=== PATIENT | female | born 1960 | race Hispanic/Latino ===

== ENCOUNTER 2023-05-24 12:52 | Emergency (ER) | payer MEDICAID, SELFPAY ==
--- NOTE | ~2023-05-24 | CT_ITS ---
EXAMINATION: CT abdomen pelvis w con DATE: 05/24/2023 16:09 INDICATION: Abdominal pain. Nausea. Abnormal liver function tests. TECHNIQUE: Computed tomography (CT) of the abdomen and pelvis was performed with 100 mL Omnipaque 350 intravenous contrast. Automated exposure control and iterative reconstruction technique were employe d. The dose-length product was 670.57 mGy-cm. COMPARISON: None. FINDINGS: The visualized portions of the lung bases demonstrate mild atelectasis. There is a 3 mm nod ule in right lower lobe, likely benign. There is mild scarring in paraspinal right lower lobe. No ple ural effusion. The heart size is normal. There are coronary artery calcifications. No pericardial eff usion. The liver and spleen are normal. The gallbladder is absent. The common duct is dilated to 11 m m. There are 3 mm and 3 mm cysts in the pancreas. The adrenal glands are normal. There is a 9 mm cyst in right kidney. Left kidney is normal. There are no dilated loops is normal. Aortic atherosclerosis is noted. There are no pathologically enlarged lymph nodes. There is no free intraperitoneal fluid. There is moderate thoracic spondylosis and severe lumbar spondylosis. Lumbar dextroscoliosis is noted . IMPRESSION: 1. Mildly dilated common duct status post cholecystectomy. Reviewed, dictated and finalized at location E. 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
[2023-05-24 12:54] VITALS: BP 136/87; PULSE 107; RESP 16; TEMP 37.2; O2SAT 98
--- NOTE | 2023-05-24 15:18 | ED.ABDPAIN ---
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 Reports nausea, vomiting, dysuria, urinary urgency, and epigastric pain. Denies fever, cough, congestion, or diarrhea. Related Data Allergies Allergy/AdvReac Type Severity Reaction Status Date / Time No Known Allergies Allergy Verified 05/24/23 13:09 Review of Systems Review of Systems: CONSTITUTIONAL: Denies fever GASTROINTESTINAL: Reports abdominal pain, nausea, vomiting. Denies diarrhea. GENITOURINARY: Reports dysuria. Denies hematuria. All systems reviewed & are unremarkable except as noted in HPI and below PMFSH Past Medical History Medical History (Updated 05/24/23 @ 18:02 by Manuela Hardy PA-C) History of diabetes mellitus Social History Social History (Updated 05/24/23 @ 15:21 by Manuela Hardy PA-C) Substance use: never Exam Narrative: GENERAL: Well-appearing, well-nourished, and in no acute distress. HEAD: Normocephalic, atraumatic. EYES: EOMI. CHEST: Clear to auscultation. No respiratory distress. No wheezes rales or rhonchi HEART: Regular rate and rhythm. No murmur heard. Normal peripheral pulses. ABDOMEN: Soft, nontender, nondistended, normal active bowel sounds. EXTREMITIES: Normal range of motion. No edema. SKIN: Warm, dry, no rash. NEURO: No focal deficits. Alert and oriented x3. PSYCH: Normal mood and affect Course Course Emergency Course: Patient and family updated on her workup and agree with plan of care Vital Signs Vital signs: Vital Signs Temperature 98.9 F 05/24/23 12:54 Pulse Rate 107 H 05/24/23 12:54 Respiratory Rate 16 05/24/23 12:54 Blood Pressure 136/87 05/24/23 12:54 Pulse Oximetry 98 05/24/23 12:54 Oxygen Delivery Room Air 05/24/23 12:54 Temperature 98.9 F 05/24/23 12:54 Pulse Rate 107 H 05/24/23 12:54 Respiratory Rate 16 05/24/23 12:54 Blood Pressure 136/87 05/24/23 12:54 Pulse Oximetry 98 05/24/23 12:54 Oxygen Delivery Room Air 05/24/23 12:54 MDM - Abdominal Pain MDM Narrative Medical decision making narrative: Patient presents to the emergency department for nausea, vomiting and urinary symptoms. She is afebrile and nontoxic appearing. Her vitals are stable. CBC without leukocytosis. Metabolic panel with evidence of dehydration and hypokalemia. Patient hydrated with IV fluids in the ED and potassium replaced. Magnesium is normal. Liver enzymes are mildly elevated. I don't have any comparison labs to review. UA with evidence of infection. CT abdomen/pelvis with mildly dilated common bile duct s/p cholecystectomy. Patient was updated on her workup. Reports relief with IV fluids and Zofran. Able to tolerate PO challenge. Given first dose of antibiotics IV. She is to follow up with her PCP. She was given warnings to return to the ER Differential Diagnosis Differential diagnosis: Likely calculus of kidney, gastroenteritis, pancreatitis and other (UTI) Lab Data Attestation: I reviewed the patient's lab results. 05/24/23 15:11 05/24/23 15:11 Labs: Lab Results 05/24/23 Range/Units 15:11 WBC 6.4 (4.5-10.0) K/mm3 RBC 5.38 (4.2-5.4) M/mm3 Hgb 14.7 (12.0-15.0) g/dL Hct 45.5 (37.0-47.0) % MCV 84.6 (80-100) fl MCH 27.3 (26-34) pg MCHC 32.3 (32-36) g/dl RDW 12.8 (11.5-14.5) % Plt Count 241 (150-375) k/mm3 MPV 10.1 (7.4-10.4) fl Immature Gran % (Auto) 0.3 (0-0.5) % Neut % (Auto) 65.3 (45.5-73.1) % Lymph % (Auto) 28.1 (18.3-44.2) % [place] % (Auto) 5.3 (2.6-8.5) % Eos % (Auto) 0.2 (0-4.4) % Baso % (Auto) 0.8 (0.2-1.2) % Lymph # (Auto) 1.79 (0.9-3
[2023-05-24 15:30] LABS: Basophils Absolute Auto 0.1 K/mm3 (0.0-0.1); Basophils Percent Auto 0.8 % (0.2-1.2); Eosinophils Percent Auto 0.2 % (0-4.4); Hematocrit 45.5 % (37.0-47.0); Hemoglobin 14.7 g/dL (12.0-15.0); Immature Granulocyte Absolute 0.02 K/mm3 (0.00-0.031); Immature Granulocyte Percent A 0.3 % (0-0.5); Lymphocytes Absolute Auto 1.79 K/mm3 (0.9-3.2); Lymphocytes Percent Auto 28.1 % (18.3-44.2); Mean Corpuscular HGB Conc 32.3 g/dl (32-36); Mean Corpuscular Hemoglobin 27.3 pg (26-34); Mean Corpuscular Volume 84.6 fl (80-100); Mean Platelet Volume 10.1 fl (7.4-10.4); Monocytes Absolute Auto 0.3 K/mm3 (0.1-0.6); Monocytes Percent Auto 5.3 % (2.6-8.5); Neutrophils Absolute Auto 4.2 K/mm3 (1.3-6.7); Neutrophils Percent Auto 65.3 % (45.5-73.1); Platelet Count Result 241 k/mm3 (150-375); Red Blood Count 5.38 M/mm3 (4.2-5.4); Red Cell Distribution Width 12.8 % (11.5-14.5); White Blood Count 6.4 K/mm3 (4.5-10.0)
[2023-05-24 15:33] LABS: Alanine Aminotransferase 93 U/L (6-35); Albumin Level 4.7 g/dL (3.5-5.1); Alkaline Phosphatase 85 U/L (38-126); Anion Gap 13 mmol/L (8-16); Aspartate Amino Transferase 101 U/L (14-36); Bilirubin,Total 1.7 mg/dL (0.2-1.3); Blood Urea Nitrogen 14 mg/dL (7-17); Carbon Dioxide 26 mmol/L (22-30); Chloride 97 mmol/L (98-107); Estimated CRCL calculation 37 ml/min; Estimated Glomerular Filt Rate 45; Glucose 134 mg/dL (65-110); Lipase 171 U/L (23-300); Sodium 136 mmol/L (137-145)
[2023-05-24] MEDS: SODIUM CHLORIDE 0.9% IV 500 ML 999 ML IV CONT (15:33)
[2023-05-24] MEDS: ONDANSETRON INJ 4 MG/2 ML VIAL IV PUSH (15:34)
[2023-05-24] MEDS: FAMOTIDINE 20 MG/2 ML VIAL IV PUSH (15:34)
[2023-05-24 15:38] LABS: Appearance Urine Cloudy (Clear); Bacteria Urine None Seen /hpf; Bilirubin Urine Negative (Negative); Blood Urine Negative (Negative); Color Urine Dark Yellow (Yellow); Glucose Urine UA Negative (Negative); Hyaline Casts Urine Present /lpf; Ketones Urine 3+ mg/dL (Negative); Leukocyte Esterase Ur Trace LEU/UL (Negative); Nitrate Urine Negative (Negative); Non Pathogenic Casts >20; Protein Urine 1+ mg/dL (Negative); RBC Urine 0-2 /hpf (0-2); Specific Grav Ur 1.026 (1.001-1.035); Squamous Epithelial Cell Urine Moderate /hpf (Few); pH Urine 5.5 (5.0-9.0)
[2023-05-24 15:39] LABS: Add Urine Microscopic? YES
[2023-05-24 16:56] LABS: Influenza A QL RT-PCR Negative (Negative); Influenza B QL RT-PCR Negative (Negative); Magnesium 1.8 mg/dL (1.6-2.3); SARS-CoV-2 RNA PCR Negative (Negative)
[2023-05-24] MEDS: SODIUM CHLORIDE 0.9% IV 1,000 ML 999 ML IV CONT (17:19)
[2023-05-24] MEDS: POTASSIUM CHLORIDE 20 MEQ ER TABLET 40 MEQ PO (18:10)
== END 2023-05-24 18:47 | disposition home or self-care (01) ==
PROVIDERS: Emergency Provider Physician Assistant
DX: N39.0 Urinary tract infection, site not specified (principal); E87.6 Hypokalemia; E86.0 Dehydration; Z20.822 Contact with and (suspected) exposure to COVID-19
CPT/HCPCS: 36415; 74177; 80053; 81001; 83690; 83735; 85025; 87086; 87636; 96365; 96375; 99284; A9270; J0696; J2405; J7030; J7040; Q9967

== ENCOUNTER 2023-06-27 12:36 | Emergency (ER) | payer OTHER, SELFPAY ==
--- NOTE | ~2023-06-27 | CT_ITS ---
EXAMINATION: CT abdomen pelvis w con DATE: 06/27/2023 15:47 INDICATION: Abdominal pain TECHNIQUE: Computed tomography (CT) of the abdomen and pelvis was performed with 100 cc Omnipaque 350 intravenous contrast. The dose-length product was 383.02 mGy-cm. Automated exposure control and iter ative reconstruction technique were employed. COMPARISON: CT dated 05/24/2023 FINDINGS: Lung bases unremarkable. Heart size normal. No significant pleural or pericardial effusion. Fatty infiltration of the liver. Gallbladder is not identified, likely surgically absent. The spleen , pancreas, adrenal glands and left kidney are unremarkable. There is a right renal cyst. Bowel gas p attern nonobstructive. No abnormal pelvic masses or fluid collections. No significant vascular abnorm ality. No lymphadenopathy. No free air or free fluid. No acute osseous abnormality. IMPRESSION: 1. No acute abdominal abnormality. Reviewed, dictated and finalized at location L.
[2023-06-27 14:06] LABS: Basophils Absolute Auto 0.1 K/mm3 (0.0-0.1); Eosinophils Percent Auto 0.3 % (0-4.4); Hematocrit 44.5 % (37.0-47.0); Hemoglobin 14.6 g/dL (12.0-15.0); Immature Granulocyte Absolute 0.02 K/mm3 (0.00-0.031); Immature Granulocyte Percent A 0.3 % (0-0.5); Lymphocytes Absolute Auto 1.82 K/mm3 (0.9-3.2); Lymphocytes Percent Auto 30.5 % (18.3-44.2); Mean Corpuscular HGB Conc 32.8 g/dl (32-36); Mean Corpuscular Hemoglobin 27.5 pg (26-34); Mean Platelet Volume 10.3 fl (7.4-10.4); Monocytes Absolute Auto 0.3 K/mm3 (0.1-0.6); Monocytes Percent Auto 5.2 % (2.6-8.5); Neutrophils Absolute Auto 3.7 K/mm3 (1.3-6.7); Neutrophils Percent Auto 62.7 % (45.5-73.1); Platelet Count Result 247 k/mm3 (150-375); Red Cell Distribution Width 12.5 % (11.5-14.5)
[2023-06-27 14:15] LABS: Alanine Aminotransferase 83 U/L (6-35); Albumin Level 4.6 g/dL (3.5-5.1); Alkaline Phosphatase 102 U/L (38-126); Anion Gap 10 mmol/L (4-12); Aspartate Amino Transferase 73 U/L (14-36); Bilirubin,Total 1.6 mg/dL (0.2-1.3); Blood Urea Nitrogen 19 mg/dL (7-17); Calcium 9.8 mg/dL (8.4-10.2); Carbon Dioxide 28 mmol/L (22-30); Chloride 97 mmol/L (98-107); Estimated Glomerular Filt Rate > 60; Glucose 133 mg/dL (65-110); Lipase 219 U/L (23-300); Potassium 3.1 mmol/L (3.4-5.0); Sodium 135 mmol/L (137-145)
[2023-06-27 14:42] LABS: Add Urine Microscopic? NO; Color Urine Yellow (Yellow)
[2023-06-27 14:43] LABS: Appearance Urine Clear (Clear); Blood Urine Negative (Negative); Glucose Urine UA 3+ mg/dL (Negative); Ketones Urine Negative (Negative); Protein Urine Negative (Negative); Specific Grav Ur 1.025 (1.001-1.035); pH Urine 5.5 (5.0-9.0)
[2023-06-27 14:44] LABS: Bilirubin Urine Negative (Negative); Nitrate Urine Negative (Negative)
[2023-06-27 14:45] LABS: Leukocyte Esterase Ur Negative LEU/UL (Negative); Urobilinogen Urine 0.2 mg/dL (<2.0)
--- NOTE | 2023-06-27 15:09 | ED.GENADULT ---
HPI - General Adult General Chief complaint: Headache Stated complaint: headache Time Seen by Provider: 06/27/23 14:07 History of Present Illness HPI narrative: 62-year-old female presents to the emergency department for evaluation of headache nausea vomiting and abdominal pain. Patient reports yesterday she was having nausea vomiting and during emesis she would have headache. Patient states today she began developing some epigastric abdominal pain. translation services were utilized Related Data Allergies Allergy/AdvReac Type Severity Reaction Status Date / Time No Known Allergies Allergy Verified 05/24/23 13:09 Review of Systems Review of Systems: All systems reviewed & are unremarkable except as noted in HPI and below PMFSH Past Medical History Medical History (Updated 06/27/23 @ 17:33 by Kyler Garcia MD) History of diabetes mellitus Social History Social History (Updated 05/24/23 @ 15:21 by Manuela Hardy PA-C) Substance use: never Exam Narrative: APPEARANCE: Well appearing, no pain, no distress, well-nourished. HEAD: normocephalic, atraumatic. EYES: PERRLA/EOMI, conjunctivae clear. NOSE: Normal no drainage EARS:TMS clear with good light reflex. THROAT: Pharynx clear, no exudate. NECK: Supple. No adenopathy, no masses. RESPIRATORY: Airway patent, respirations nonlabored. Clear to auscultation bilaterally, no rales, rhonchi, wheezing. CARDIOVASCULAR: Regular rate and rhythm without murmurs rubs or gallops. ABDOMINAL: Soft, nontender, nondistended, normal bowel sounds MUSCULOSKELETAL: Moves all extremities. Strength/ROM intact, No edema, No calf tenderness. NEURO: Alert. Cranial nerves II through XII intact. grossly intact SKIN: Warm, dry. Normal Color Course Course Emergency Course: on re-examination patient felt improved and had no headache and no abdominal pain Vital Signs Vital signs: Vital Signs Pulse Rate 81 06/27/23 15:52 Respiratory Rate 16 06/27/23 15:52 Blood Pressure 105/72 06/27/23 15:52 Pulse Oximetry 100 06/27/23 15:52 Temperature 98.2 F 06/27/23 18:03 Pulse Rate 73 06/27/23 18:03 Respiratory Rate 16 06/27/23 18:03 Blood Pressure 126/76 06/27/23 18:03 Pulse Oximetry 100 06/27/23 18:03 Medical Decision Making MDM Narrative Medical decision making narrative: 62-year-old female present to the emergency department for evaluation of nausea vomiting and upper abdominal pain. Patient was treated with GI cocktail and Toradol. Patient did feel improved with treatment. Patient is afebrile with no leukocytosis and a stable hemoglobin, patient have no significant abnormalities on her CMP. Patient had mild elevation of T bili AST ALT with normal alk-phos and normal lipase. Patient had no right upper quadrant tenderness to palpation on reexamination patient had no tenderness to palpation. CT scan showed no acute abdominal pelvic abnormality. Patient family were updated the results of the workup with her comfortable with plan for discharge and close follow-up. Patient will be discharged home with instructions for clear liquid diet, Zofran and omeprazole. Differential Diagnosis Differential Diagnosis: gastritis, enteritis, colitis Vital Signs Vital Signs: Vital Signs Pulse Rate 81 06/27/23 15:52 Respiratory Rate 16 06/27/23 15:52 Blood Pressure 105/72 06/27/23 15:52 Pulse Oximetry 100 06/27/23 15:52 Temperature 98.2 F 06/27/23 18:03 Pulse Rate 73 06/27/23 18:03 Respiratory Rate 16 06/27/23 18:03 Blood Pressure 126/76 06/27/23 18:03 Pulse Oximetry 100 06/27/23 18:03 Lab Data Lab results reviewed: Yes I reviewed the patient's lab results. 06/27/23 13:54 06/27/23 13:54 Labs: Lab Results 06/27/23 06/27/23 Range/Units 13:54 14:25 WBC 6.0 (4.5-10.0) K/mm3 RBC 5.30 (4.2-5.4) M/mm3 Hgb 14.6 (12.0-15.0) g/dL Hct 44.5 (37.0-47.0) %
[2023-06-27] MEDS: SODIUM CHLORIDE 0.9% IV 1,000 ML 999 ML IV CONT (15:49)
[2023-06-27] MEDS: BELLADONNA ALK/PHENOB ELIX 10 ML, MAG HYDROX/ALUMINUM HYD/SIMETH 30 ML, LIDOCAINE HCL 2... PO (15:49)
[2023-06-27 15:52] VITALS: BP 105/72; PULSE 81; RESP 16; O2SAT 100
[2023-06-27 16:46] VITALS: BP 93/61; O2SAT 100
[2023-06-27] MEDS: KETOROLAC 15 MG/ML VIAL (*BKC) IV PUSH (17:01)
[2023-06-27 18:03] VITALS: BP 126/76; PULSE 73; RESP 16; TEMP 36.8; O2SAT 100
== END 2023-06-27 18:00 | disposition home or self-care (01) ==
PROVIDERS: Emergency Provider Emergency Medicine; PCP Internal Medicine Infectious Disease
DX: R11.2 Nausea with vomiting, unspecified (principal); R10.9 Unspecified abdominal pain; E11.9 Type 2 diabetes mellitus without complications
CPT/HCPCS: 36415; 74177; 80053; 81003; 83690; 85025; 96361; 96374; 99284; A9270; J1885; J7030; Q9967

== ENCOUNTER 2023-07-03 13:50 | Emergency (ER) | payer OTHER, SELFPAY ==
[2023-07-03] VITALS (17 sets, daily range): BP systolic 103–113; BP diastolic 70–82; PULSE 87–100; RESP 11–21; TEMP 36.4; O2SAT 96–100
--- NOTE | ~2023-07-03 | CT_ITS ---
EXAMINATION: CT abdomen pelvis w con DATE: 07/03/2023 18:21 INDICATION: lower abd pain, BRBPR, hemorrhoids, constipation TECHNIQUE: Computed tomography (CT) of the abdomen and pelvis was performed with 100 mL Omnipaque-350 intravenous contrast. Automated exposure control and iterative reconstruction technique were employe d. The dose-length product was 617.03 mGy-cm. COMPARISON: 06/27/2023. FINDINGS: Lower thorax: Unremarkable Liver: Diffuse fatty infiltration. Biliary/Gallbladder: Gallbladder is absent. No bile duct dilation. Pancreas: No mass or duct dilation. Spleen: Normal. Adrenals:No mass. Kidneys: No suspicious mass, obstructing stone, or hydronephrosis. Simple right lower pole cyst. GI tract: Mild distal esophageal and gastric wall edema. Mild dilation of the rectum by formed stool, without significant surrounding inflammatory change. Suggestion of rectal hyperemia and wall edema. No small or large bowel dilation. Normal appendix. Mesentery/Peritoneum: No ascites, mass, or free air. Retroperitoneum: No mass. Pelvis: Normal urinary bladder. Absent uterus. Ovaries not confidently identified. Soft Tissues: Soft tissues and body wall unremarkable. Bones: No acute osseous finding. IMPRESSION: Mild esophagitis/gastritis. Hepatic steatosis. Possible proctitis with mild fecal impaction. Reviewed, dictated and finalized at location K.
--- NOTE | 2023-07-03 14:15 | ED.GIBLEED ---
HPI - GI Bleed General Chief complaint: GI Bleed <ROLO Leroy Last Filed: 07/03/23 14:35> Stated complaint: bloody bm, hemorrhoids <ROLO Leroy Last Filed: 07/03/23 14:35> Time Seen by Provider: 07/03/23 14:15 <ROLO Leroy Last Filed: 07/03/23 14:35> Focused HPI: Patient is a 62-year-old female who presents the ED with report of rectal bleeding. Patient is primarily [place]ani-speaking. 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 Patient reports having issues with hemorrhoids and bright red rectal bleeding since Monday. She reports having intense pain with attempting to have a bowel movement, though reports constipation for the last 4-5 days. Reports lower abdominal discomfort, denies nausea, vomiting, fevers, dizziness, lightheadedness. Patient is on any blood thinners. GENERAL: Well-appearing, well-nourished, and in no acute distress. HEAD: Normocephalic, atraumatic. CHEST: Clear to auscultation. ?No respiratory distress. HEART: Tachycardic with regular rhythm.? ABD: Mild tenderness in suprapubic and RLQ. NEURO: ?Alert and oriented x3. Patient screened in triage and initial orders placed.? ?Additional care and disposition to be based upon?diagnostic testing and treatment. <ROLO Leroy Last Filed: 07/03/23 14:35> Source: patient <ROLO Leroy Last Filed: 07/03/23 14:35> Mode of arrival: ambulatory <ROLO Leroy Last Filed: 07/03/23 14:35> Limitations: no limitations <ROLO Leroy Last Filed: 07/03/23 14:35> Related Data Allergies/Adverse reactions: Allergies Allergy/AdvReac Type Severity Reaction Status Date / Time No Known Allergies Allergy Verified 07/03/23 14:19 <ROLO Leroy Last Filed: 07/03/23 14:35> Review of Systems Review of Systems: All systems as dictated in HPI <Lenin Hill PA-C - Last Filed: 07/04/23 01:24> [facility] Past Medical History Medical History: Medical History (Updated 07/04/23 @ 00:01 by Dick Kumar) History of diabetes mellitus <Smita Peralta PA-C - Last Filed: 07/03/23 14:35> Social History Social History: Social History (Updated 05/24/23 @ 15:21 by Manuela Hardy PA-C) Substance use: never <Smita Peralta PA-C - Last Filed: 07/03/23 14:35> Exam Narrative: GENERAL: Well-appearing, well-nourished, and in no acute distress. HEAD: Normocephalic, atraumatic. EYES: PERRLA and EOMI. ENT: Nares clear, no rhinorrhea or epistaxis. Mucous membranes moist. Oropharynx without tonsillar hypertrophy exudate or other lesions. NECK: Supple. No adenopathy or masses. CHEST: No respiratory distress. Clear to auscultation. No wheezes rales or rhonchi HEART: Regular rate and rhythm. No murmur heard. Normal peripheral pulses. ABDOMEN: Soft, nontender, nondistended, normal active bowel sounds. MSK: Normal range of motion. No edema. SKIN: Warm, dry, no rash. NEURO: Alert and oriented x3. No focal deficits. PSYCH: Normal mood and affect. : <Lenin Hill PA-C - Last Filed: 07/04/23 01:24> Course Course Emergency Course: Reason for by nursing staff that she was able to expel fecal material soapsuds enema. Patient is feeling much improved on re-evaluation. <Lenin Hill PA-C - Last Filed: 07/04/23 01:24> Vital Signs Vital signs: Vital Signs Temperature 97.6 F 07/03/23 14:12 Pulse Rate 100 07/03/23 14:12 Respiratory Rate 17 07/03/23 14:12 Blood Pressure 111/82 07/03/23 14:12 Pulse Oximetry 100 07/03/23 14:12 Oxygen Delivery Room Air 07/03/23 14:12 Temperature 97.6 F 07/03/23 19:49 Pulse Rate 96 07/03/23 21:00 Respiratory Rate 20 07/03/23 21:00 Blood Pressure 103/70 07/03/23 20:01 Pulse Oximetry 97 07/03/23 21:00 Oxygen Delivery Room Air 07/03/23 14:12 Katrin Benito
[2023-07-03 17:39] LABS: Basophils Absolute Auto 0.1 K/mm3 (0.0-0.1); Eosinophils Absolute Auto 0.1 K/mm3 (0-0.3); Eosinophils Percent Auto 0.5 % (0-4.4); Hemoglobin 14.6 g/dL (12.0-15.0); Immature Granulocyte Absolute 0.03 K/mm3 (0.00-0.031); Immature Granulocyte Percent A 0.3 % (0-0.5); Lymphocytes Absolute Auto 2.48 K/mm3 (0.9-3.2); Lymphocytes Percent Auto 26.6 % (18.3-44.2); Mean Corpuscular HGB Conc 32.4 g/dl (32-36); Mean Corpuscular Hemoglobin 27.3 pg (26-34); Mean Corpuscular Volume 84.3 fl (80-100); Mean Platelet Volume 9.9 fl (7.4-10.4); Monocytes Absolute Auto 0.6 K/mm3 (0.1-0.6); Monocytes Percent Auto 6.3 % (2.6-8.5); Neutrophils Absolute Auto 6.1 K/mm3 (1.3-6.7); Neutrophils Percent Auto 65.3 % (45.5-73.1); Platelet Count Result 284 k/mm3 (150-375); Red Blood Count 5.34 M/mm3 (4.2-5.4); Red Cell Distribution Width 12.6 % (11.5-14.5); White Blood Count 9.3 K/mm3 (4.5-10.0)
[2023-07-03 17:49] LABS: Alanine Aminotransferase 73 U/L (6-35); Albumin Level 4.4 g/dL (3.5-5.1); Alkaline Phosphatase 109 U/L (38-126); Anion Gap 11 mmol/L (4-12); Aspartate Amino Transferase 82 U/L (14-36); Bilirubin,Total 1.3 mg/dL (0.2-1.3); Blood Urea Nitrogen 16 mg/dL (7-17); Calcium 9.8 mg/dL (8.4-10.2); Carbon Dioxide 27 mmol/L (22-30); Chloride 96 mmol/L (98-107); Estimated Glomerular Filt Rate > 60; Glucose 151 mg/dL (65-110); Lipase 212 U/L (23-300); Potassium 3.2 mmol/L (3.4-5.0); Sodium 134 mmol/L (137-145)
[2023-07-03 17:54] LABS: Partial Thromboplastin Time 26.8 Seconds (22.3-36.8)
[2023-07-03 19:30] LABS: Appearance Urine Clear (Clear); Bilirubin Urine Negative (Negative); Blood Urine Negative (Negative); Color Urine Yellow (Yellow); Glucose Urine UA 3+ mg/dL (Negative); Ketones Urine Trace mg/dL (Negative); Leukocyte Esterase Ur Negative LEU/UL (Negative); Nitrate Urine Negative (Negative); Protein Urine Negative (Negative); Urobilinogen Urine 0.2 mg/dL (<2.0); pH Urine 7.5 (5.0-9.0)
[2023-07-03 19:39] LABS: Add Urine Microscopic? NO; Specific Grav Ur 1.065 (1.001-1.035)
== END 2023-07-03 21:17 | disposition home or self-care (01) ==
PROVIDERS: Physician Assistant; Emergency Provider Physician Assistant; PCP Internal Medicine Infectious Disease
DX: K56.41 Fecal impaction (principal); K64.8 Other hemorrhoids; E11.9 Type 2 diabetes mellitus without complications; K20.90 Esophagitis, unspecified without bleeding; K29.70 Gastritis, unspecified, without bleeding; K76.0 Fatty (change of) liver, not elsewhere classified; R93.3 Abnormal findings on diagnostic imaging of other parts of digestive tract
CPT/HCPCS: 36415; 74177; 80053; 81003; 83690; 85025; 85610; 85730; 86850; 86900; 86901; 99284; Q9967

== ENCOUNTER 2023-12-22 07:59 | Emergency (ER) | payer OTHER, SELFPAY ==
--- NOTE | ~2023-12-22 | XR_ITS ---
EXAMINATION: XR ribs RT 2V w CXR 2V DATE: 12/22/2023 11:32 INDICATION: Right-sided rib pain. TECHNIQUE: PA and lateral views of the chest and 3 views of the right ribs were obtained. COMPARISON: None FINDINGS: No rib fractures identified. Mild linear discoid atelectasis/scarring at the lateral left lower lung zone. No other airspace opacities, pulmonary edema, pleural effusion or pneumothorax. Cardiomediastin al silhouette is normal. Mild 3 compartment scoliosis of the thoracic and lumbar spine with mild lowe r thoracic levocurvature and dextrocurvature of the more cephalad thoracic and caudal lumbar spine wi th moderate to severe spondylosis. IMPRESSION: 1. Mild discoid atelectasis at the left lower lung zone. No rib fracture or other acute cardiopulmona ry disease. Reviewed, dictated and finalized at location B. IMPRESSION: 1. Mild discoid atelectasis at the left lower lung zone. No rib fracture or oth er acute cardiopulmonary disease.
--- NOTE | ~2023-12-22 | CT_ITS ---
EXAMINATION: CT abdomen pelvis w con DATE: 12/22/2023 13:50 INDICATION: Right upper quadrant abdominal pain. TECHNIQUE: Computed tomography (CT) of the abdomen and pelvis was performed with 100 mL Omnipaque 350 intravenous contrast. Automated exposure control and iterative reconstruction technique were employe d. The dose-length product was 801.86 mGy-cm. COMPARISON: CT abdomen and pelvis 07/03/2023 FINDINGS: The visualized portions of lung bases demonstrate mild atelectasis. No pleural effusion. Th e heart size is normal. No pericardial effusion. The liver, spleen, pancreas, and adrenal glands are normal. The gallbladder is absent. There is an 11 mm cyst in right kidney. Left kidney is normal. The re are no dilated loops of bowel. The appendix is normal. There are no pathologically enlarged lymph nodes. There is no free intraperitoneal fluid. There is severe lumbar spondylosis. IMPRESSION: 1. No etiology for the patient's symptoms. Reviewed, dictated and finalized at location A.
[2023-12-22 08:38] VITALS: BP 141/76; PULSE 71; RESP 19; TEMP 36.7; O2SAT 99
[2023-12-22 10:05] VITALS: BP 133/83; PULSE 77; RESP 17; O2SAT 98
--- NOTE | 2023-12-22 11:23 | ED.GENADULT ---
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 Ongoing over the last week. Reports she thinks she cracked a rib. No recent injuries. The pain is worse with movement and relieved with rest. Denies fevers, shortness of breath, abdominal pain, vomiting. Related Data Allergies Allergy/AdvReac Type Severity Reaction Status Date / Time No Known Allergies Allergy Verified 07/03/23 14:19 Review of Systems Review of Systems: CONSTITUTIONAL: Denies fever GASTROINTESTINAL: Denies abdominal pain, nausea, vomiting All systems reviewed & are unremarkable except as noted in HPI and below PMFSH Past Medical History Medical History (Updated 12/22/23 @ 15:44 by Manuela Hardy PA-C) History of diabetes mellitus Social History Social History (Updated 05/24/23 @ 15:21 by Manuela Hardy PA-C) Substance use: never Exam Narrative: GENERAL: Well-appearing, well-nourished, and in no acute distress. HEAD: Normocephalic, atraumatic. EYES: EOMI. CHEST: Clear to auscultation. No respiratory distress. No wheezes rales or rhonchi HEART: Regular rate and rhythm. No murmur heard. Normal peripheral pulses. ABDOMEN: Soft, nondistended, normal active bowel sounds. Mild tenderness to palpation of the right lower ribs/right upper quadrant EXTREMITIES: Normal range of motion. No edema. SKIN: Warm, dry, no rash. NEURO: No focal deficits. Alert and oriented x3. PSYCH: Normal mood and affect Course Course Emergency Course: patient and family updated on workup and agree with plan of care Vital Signs Vital signs: Vital Signs Temperature 98.1 F 12/22/23 08:38 Pulse Rate 71 12/22/23 08:38 Respiratory Rate 19 12/22/23 08:38 Blood Pressure 141/76 H 12/22/23 08:38 Pulse Oximetry 99 12/22/23 08:38 Oxygen Delivery Room Air 12/22/23 08:38 Temperature 98.1 F 12/22/23 08:38 Pulse Rate 77 12/22/23 10:05 Respiratory Rate 17 12/22/23 12:44 Blood Pressure 133/83 12/22/23 10:05 Pulse Oximetry 98 12/22/23 10:05 Oxygen Delivery Room Air 12/22/23 08:38 Medical Decision Making MDM Narrative Medical decision making narrative: patient presents to the emergency department for right-sided rib pain. Ongoing over the last week. No known injuries. She is afebrile and nontoxic appearing. Her vitals are stable. Cbc without leukocytosis. Metabolic panel with elevation in AST and ALT, this does appear chronic. Lipase is normal. CT abdomen and pelvis without acute findings. Right rib/ chest x-ray also without acute findings. Patient was updated on her workup and agrees with plan of care. Instructed to have close follow-up with primary provider for further evaluation. She was given warnings to return to the ER Differential Diagnosis Differential Diagnosis: muscle strain, rib fracture, rib contusion, pneumonia, hepatitis, pancreatitis Vital Signs Vital Signs: Vital Signs Temperature 98.1 F 12/22/23 08:38 Pulse Rate 71 12/22/23 08:38 Respiratory Rate 19 12/22/23 08:38 Blood Pressure 141/76 H 12/22/23 08:38 Pulse Oximetry 99 12/22/23 08:38 Oxygen Delivery Room Air 12/22/23 08:38 Temperature 98.1 F 12/22/23 08:38 Pulse Rate 77 12/22/23 10:05 Respiratory Rate 17 12/22/23 12:44 Blood Pressure 133/83 12/22/23 10:05 Pulse Oximetry 98 12/22/23 10:05 Oxygen Delivery Room Air 12/22/23 08:38 Lab Data Lab results reviewed: Yes I reviewed the patient's lab results. 12/22/23 11:47 12/22/23 11:47 Labs: Lab Results 12/22/23 Range/Units 11:47 WBC 5.4 (4.5-10.0) K/mm3 RBC 5.44 H (4.2-5.4) M/mm3
[2023-12-22 11:52] LABS: Basophils Absolute Auto 0.1 K/mm3 (0.0-0.1); Basophils Percent Auto 1.5 % (0.2-1.2); Eosinophils Absolute Auto 0.1 K/mm3 (0-0.3); Eosinophils Percent Auto 1.9 % (0-4.4); Hematocrit 44.9 % (37.0-47.0); Hemoglobin 14.9 g/dL (12.0-15.0); Immature Granulocyte Absolute 0.02 K/mm3 (0.00-0.031); Immature Granulocyte Percent A 0.4 % (0-0.5); Lymphocytes Absolute Auto 1.76 K/mm3 (0.9-3.2); Lymphocytes Percent Auto 32.7 % (18.3-44.2); Mean Corpuscular HGB Conc 33.2 g/dl (32-36); Mean Corpuscular Hemoglobin 27.4 pg (26-34); Mean Corpuscular Volume 82.5 fl (80-100); Mean Platelet Volume 9.6 fl (7.4-10.4); Monocytes Absolute Auto 0.3 K/mm3 (0.1-0.6); Monocytes Percent Auto 4.8 % (2.6-8.5); Neutrophils Absolute Auto 3.2 K/mm3 (1.3-6.7); Neutrophils Percent Auto 58.7 % (45.5-73.1); Platelet Count Result 228 k/mm3 (150-375); Red Blood Count 5.44 M/mm3 (4.2-5.4); Red Cell Distribution Width 12.5 % (11.5-14.5); White Blood Count 5.4 K/mm3 (4.5-10.0)
[2023-12-22 12:11] LABS: Alanine Aminotransferase 114 U/L (6-35); Albumin Level 4.7 g/dL (3.5-5.1); Alkaline Phosphatase 108 U/L (38-126); Anion Gap 12 mmol/L (4-12); Aspartate Amino Transferase 117 U/L (14-36); Bilirubin,Total 1.7 mg/dL (0.2-1.3); Blood Urea Nitrogen 15 mg/dL (7-17); Calcium 10.2 mg/dL (8.4-10.2); Carbon Dioxide 27 mmol/L (22-30); Chloride 97 mmol/L (98-107); Estimated Glomerular Filt Rate > 60; Glucose 163 mg/dL (65-110); Lipase 260 U/L (23-300); Potassium 3.4 mmol/L (3.4-5.0); Sodium 136 mmol/L (137-145)
[2023-12-22] MEDS: ACETAMINOPHEN 500 MG TABLET 1000 MG PO (12:27)
[2023-12-22 12:44] VITALS: RESP 17
== END 2023-12-22 15:59 | disposition home or self-care (01) ==
PROVIDERS: Emergency Provider Physician Assistant; PCP Physician Assistant
DX: R07.81 Pleurodynia (principal); R74.01 Elevation of levels of liver transaminase levels
CPT/HCPCS: 36415; 71046; 71100; 74177; 80053; 83690; 85025; 99284; A9270; Q9967

== ENCOUNTER 2024-01-13 09:36 | Emergency (ER) | payer OTHER, SELFPAY ==
[2024-01-13 09:45] VITALS: BP 142/98; PULSE 97; RESP 16; TEMP 36.5; O2SAT 98
--- NOTE | 2024-01-13 12:02 | ED.HA ---
HPI - Headache General Chief Complaint: Headache Stated Complaint: CRUZ, vomiting Time Seen by Provider: 01/13/24 11:38 History of Present Illness HPI Narrative: Patient presenting here with fevers/ chills, headache, nausea for the last few days, no recent trauma, she does get headaches with last headache 1 month ago. No focal numbness or weakness. Related Data Allergies Allergy/AdvReac Type Severity Reaction Status Date / Time No Known Allergies Allergy Verified 01/13/24 11:40 Review of Systems Review of Systems: All systems reviewed & are unremarkable except as noted in HPI and below PMFSH Past Medical History Medical History (Updated 01/13/24 @ 12:50 by Bharati Bolton MD) History of diabetes mellitus Social History Social History (Updated 05/24/23 @ 15:21 by Manuela Hardy PA-C) Substance use: never Exam Narrative: EXAMINATION OF ORGAN SYSTEMS/BODY AREAS: Constitutional: Vital signs per nursing GENERAL:[No acute distress, non-toxic appearing.] HEAD: Normal with no signs of head trauma. EYES: EOMI, conjunctiva normal ENT: Hearing grossly intact LUNGS: Nonlabored breathing. HEART: [Regular rate and rhythm] ABD: [Soft], [nontender to palpation] EXT: Normal range of motion SKIN: [No rashes or lesions.] NEURO: [Alert and oriented x 3. No gross focal sensory or strength deficits.] PSYCH: Normal affect Course Vital Signs Vital signs: Vital Signs Temperature 97.7 F 01/13/24 09:45 Pulse Rate 97 01/13/24 09:45 Respiratory Rate 16 01/13/24 09:45 Blood Pressure 142/98 H 01/13/24 09:45 Pulse Oximetry 98 01/13/24 09:45 Oxygen Delivery Room Air 01/13/24 09:45 Temperature 97.4 F L 01/13/24 13:29 Pulse Rate 96 01/13/24 13:29 Respiratory Rate 15 01/13/24 13:29 Blood Pressure 119/77 01/13/24 13:29 Pulse Oximetry 96 01/13/24 13:29 Oxygen Delivery Room Air 01/13/24 09:45 MDM - Headache MDM Narrative Medical decision making narrative: 63-year-old female presents to the emergency department for headache. Patient is hemodynamically stable. No focal neurological or cranial nerve deficits on exam. No meningeal signs. The headache was gradual in onset, it is not exertional and does not appear consistent with subarachnoid hemorrhage or intracranial bleeding. No trauma. Patient is given Reglan for headache and nausea. On reevaluation, the patient feels significantly better with the headache resolved. No neurological deficits. Patient is comfortable going home for outpatient follow-up with primary care physician and provided with strict return precautions, especially for worsening headaches, neck pain/stiffness, fever or weakness, numbness/tingling or persistent vomiting. Discharge Plan Discharge Clinical Impression: Headache, Nausea & vomiting Patient Disposition: Home, Self-Care Condition: Stable Instructions: Antibiotic Form, Acute Headache (ED), Acute Nausea and Vomiting (ED) Additional Instructions: Please follow up with your doctor; you can always return for any further issues. Prescriptions: New acetaminophen [Tylenol Extra Strength] 500 mg tablet 1,000 mg PO Q6H PRN (Reason: pain) Qty: 50 0RF ondansetron 4 mg tablet,disintegrating 4 mg PO Q8H PRN (Reason: nausea and vomiting) Qty: 10 0RF No Action cefdinir 300 mg capsule 300 mg PO Q12H 7 Days Qty: 14 0RF ondansetron 4 mg tablet,disintegrating 4 mg PO Q8H PRN (Reason: nausea and vomiting) Qty: 10 0RF omeprazole 20 mg tablet,delayed release (DR/EC) 20 mg PO DAILY Qty: 14 0RF ondansetron 4 mg tablet,disintegrating 4 mg PO Q8H PRN (Reason: nausea and vomiting) Qty: 14 0RF polyethylene glycol 3350 [Miralax] 17 gram powder in packet 17 g PO DAILY Qty: 14 0RF docusate sodium [Col-Rite] 100 mg capsule 100 mg PO BID Qty: 14 0RF hydrocortisone acetate [Anusol-HC] 25 mg suppository 25 mg RECTAL BID Qty: 12 0RF amoxicillin-pot clavulanate 875-125 mg tablet 1 tablet PO Q12H Qty: 10 0RF cyclobenzaprine 10 mg tablet 10 mg PO TID PRN (Reason: muscle spasm) Qty: 14 0RF Follow-up/Referrals: Erasmo,LUZ MARIA Quigley [Primary Care Provider] - 2 Days
[2024-01-13 12:19] VITALS: BP 131/85; PULSE 93; RESP 15; O2SAT 95
[2024-01-13] MEDS: METOCLOPRAMIDE HCL INJ 10 MG/2 ML VIAL IM (12:20)
[2024-01-13 13:29] VITALS: BP 119/77; PULSE 96; RESP 15; TEMP 36.3; O2SAT 96
== END 2024-01-13 13:34 | disposition home or self-care (01) ==
PROVIDERS: Emergency Provider Emergency Medicine; PCP Physician Assistant
DX: R51.9 Headache, unspecified (principal); R11.2 Nausea with vomiting, unspecified; E11.9 Type 2 diabetes mellitus without complications
CPT/HCPCS: 96372; 99283; J2765

== ENCOUNTER 2024-01-22 11:27 | Emergency (ER) | payer OTHER, SELFPAY ==
[2024-01-22 11:31] VITALS: BP 142/90; PULSE 106; RESP 20; TEMP 36.6; O2SAT 100
[2024-01-22 13:01] LABS: Basophils Absolute Auto 0.1 K/mm3 (0.0-0.1); Basophils Percent Auto 1.2 % (0.2-1.2); Eosinophils Percent Auto 0.4 % (0-4.4); Hemoglobin 15.1 g/dL (12.0-15.0); Immature Granulocyte Absolute 0.02 K/mm3 (0.00-0.031); Immature Granulocyte Percent A 0.3 % (0-0.5); Lymphocytes Absolute Auto 1.68 K/mm3 (0.9-3.2); Lymphocytes Percent Auto 24.3 % (18.3-44.2); Mean Corpuscular HGB Conc 34.3 g/dl (32-36); Mean Corpuscular Hemoglobin 27.6 pg (26-34); Mean Corpuscular Volume 80.3 fl (80-100); Mean Platelet Volume 9.9 fl (7.4-10.4); Monocytes Absolute Auto 0.4 K/mm3 (0.1-0.6); Monocytes Percent Auto 6.2 % (2.6-8.5); Neutrophils Absolute Auto 4.7 K/mm3 (1.3-6.7); Neutrophils Percent Auto 67.6 % (45.5-73.1); Platelet Count Result 250 k/mm3 (150-375); Red Blood Count 5.48 M/mm3 (4.2-5.4); Red Cell Distribution Width 13.3 % (11.5-14.5); White Blood Count 6.9 K/mm3 (4.5-10.0)
[2024-01-22 13:06] LABS: Alanine Aminotransferase 76 U/L (6-35); Albumin Level 4.7 g/dL (3.5-5.1); Alkaline Phosphatase 116 U/L (38-126); Anion Gap 13 mmol/L (4-12); Aspartate Amino Transferase 61 U/L (14-36); Bilirubin,Total 1.6 mg/dL (0.2-1.3); Blood Urea Nitrogen 7 mg/dL (7-17); Calcium 9.9 mg/dL (8.4-10.2); Carbon Dioxide 31 mmol/L (22-30); Chloride 88 mmol/L (98-107); Estimated Glomerular Filt Rate > 60; Glucose 213 mg/dL (65-110); Lipase 205 U/L (23-300); Potassium 2.9 mmol/L (3.4-5.0); Sodium 132 mmol/L (137-145)
--- NOTE | 2024-01-22 13:26 | ED.NAVMDI ---
HPI - Nausea/Vomiting/Diarrhea General Chief complaint: Nausea/Vomiting/Diarrhea Stated complaint: nasuea, vomiting, headache Time Seen by Provider: 01/22/24 12:24 History of Present Illness HPI Narrative: Patient is a 63-year-old female who presents ER with headache and fatigue. She has been having sweats and chills. No known sick contacts. Headache is bitemporal and aching and intermittently sharp. Improves with Tylenol. She has been having burning epigastric pain but has not been eating or drinking. she has not tried any medications to help with abdominal discomfort. Denies diarrhea. Last bowel movement this morning but has had decreased frequency. Related Data Allergies Allergy/AdvReac Type Severity Reaction Status Date / Time No Known Allergies Allergy Verified 01/22/24 11:38 Review of Systems Review of Systems: All systems reviewed & are unremarkable except as noted in HPI and below Constitutional: Constitutional: Reports chills, Reports fatigue and Reports fever(s) ENT: Reports system reviewed and no additional complaints, except as documented Cardiovascular: Cardiovascular: Reports no additional cardiovascular complaints Gastrointestinal: Gastrointestinal: Reports abdominal pain, Reports heartburn, Denies diarrhea, Denies nausea and Denies vomiting Genitourinary: Genitourinary: Reports no additional female genitourinary complaints Musculoskeletal: Musculoskeletal: Reports no additional musculoskeletal complaints PMFSH Past Medical History Medical History (Updated 01/22/24 @ 16:05 by Ryland Dash MD) History of diabetes mellitus Social History Social History (Updated 05/24/23 @ 15:21 by Manuela Hardy PA-C) Substance use: never Exam Narrative: GENERAL: Well-appearing, well-nourished, and in no acute distress. HEAD: Normocephalic, atraumatic. ENT: Mucous membranes moist. TMs normal bilaterally. CHEST: Clear to auscultation. No respiratory distress. HEART: Regular rate and rhythm. Normal peripheral pulses. ABDOMEN: Soft, nontender, nondistended. EXTREMITIES: Normal range of motion. No edema. SKIN: Warm, dry, no rash. NEURO: Alert and oriented x3. PSYCH: Normal mood and affect. Course Course Emergency Course: Patient given IV fluid, potassium supplement today freeman and GI cocktail. Urinalysis with evidence of infection. Discussed diagnosis and treatment plan with the granddaughter who also interpreted for the patient he did not wish to have the Stratus for the 2nd converstation. Vital Signs Vital signs: Vital Signs Temperature 98 F 01/22/24 11:31 Pulse Rate 106 H 01/22/24 11:31 Respiratory Rate 20 01/22/24 11:31 Blood Pressure 142/90 H 01/22/24 11:31 Pulse Oximetry 100 01/22/24 11:31 Oxygen Delivery Room Air 01/22/24 11:31 Temperature 98 F 01/22/24 11:31 Pulse Rate 94 01/22/24 14:57 Respiratory Rate 16 01/22/24 14:57 Blood Pressure 118/78 01/22/24 14:57 Pulse Oximetry 100 01/22/24 14:57 Oxygen Delivery Room Air 01/22/24 11:31 MDM - Nausea/Vomiting/Diarrhea Lab Data 01/22/24 12:41 01/22/24 12:41 Labs: Lab Results 01/22/24 01/22/24 01/22/24 Range/Units 12:41 13:05 13:29 WBC 6.9 (4.5-10.0) K/mm3 RBC 5.48 H (4.2-5.4) M/mm3 Hgb 15.1 H (12.0-15.0) g/dL Hct 44.0 (37.0-47.0) % MCV 80.3 (80-100) fl MCH 27.6 (26-34) pg MCHC 34.3 (32-36) g/dl RDW 13.3 (11.5-14.5) % Plt Count 250 (150-375) k/mm3 MPV 9.9 (7.4-10.4) fl Immature Gran % (Auto) 0.3 (0-0.5) % Neut % (Auto) 67.6 (45.5-73.1) % Lymph % (Auto) 24.3 (18.3-44.2) % [place] % (Auto) 6.2 (2.6-8.5) % Eos % (Auto) 0.4 (0-4.4) % Baso % (Auto) 1.2 (0.2-1.2) % Lymph # (Auto) 1.68 (0.9-3.2) K/mm3 [place] # (Auto) 0.4 (0.1-0.6) K/mm3 Eos # (Auto) 0.0 (0-0.3) K/mm3 Baso # (Auto) 0.1 (0.0-0.1) K/mm3 Abs Immat Gran (auto) 0.02 (0.00-0.031) K/m
[2024-01-22] MEDS: SODIUM CHLORIDE 0.9% IV 1,000 ML 999 ML IV CONT (13:31)
[2024-01-22] MEDS: POTASSIUM CHLORIDE 20 MEQ ER TABLET 40 MEQ PO (13:31)
[2024-01-22] MEDS: BELLADONNA ALK/PHENOB ELIX 10 ML, MAG HYDROX/ALUMINUM HYD/SIMETH 30 ML, LIDOCAINE HCL 2... PO (13:32)
[2024-01-22 13:41] VITALS: BP 151/89; PULSE 95; RESP 17; O2SAT 99
[2024-01-22 13:45] LABS: Influenza A QL RT-PCR Negative (Negative); Influenza B QL RT-PCR Negative (Negative); RSV RNA, RT-PCR Negative (Negative); SARS-CoV-2 RNA PCR Negative (Negative)
[2024-01-22] MEDS: ONDANSETRON INJ 4 MG/2 ML VIAL IV PUSH (13:53)
[2024-01-22 13:57] LABS: Add Urine Microscopic? YES; Appearance Urine Cloudy (Clear); Bacteria Urine 1+ /hpf; Bilirubin Urine 2+ (Negative); Blood Urine Negative (Negative); Color Urine Dark Yellow (Yellow); Glucose Urine UA Negative (Negative); Ketones Urine 3+ mg/dL (Negative); Leukocyte Esterase Ur 2+ LEU/UL (Negative); Need Manual Microscopic Reviewed; Nitrate Urine Negative (Negative); Protein Urine 1+ mg/dL (Negative); Specific Grav Ur 1.021 (1.001-1.035); Squamous Epithelial Cell Urine None Seen /hpf (Few); WBC Urine >100 /hpf (0-3); pH Urine 6.5 (5.0-9.0)
[2024-01-22 14:01] LABS: Transitional Epi Cells Urine Few /hpf (None Seen)
[2024-01-22 14:57] VITALS: BP 118/78; PULSE 94; RESP 16; O2SAT 100
[2024-01-22 16:35] VITALS: BP 126/80; PULSE 98; RESP 18; O2SAT 99
== END 2024-01-22 16:36 | disposition home or self-care (01) ==
PROVIDERS: Emergency Provider Emergency Medicine; PCP Physician Assistant
DX: N39.0 Urinary tract infection, site not specified (principal); E87.6 Hypokalemia; Z20.822 Contact with and (suspected) exposure to COVID-19; E11.9 Type 2 diabetes mellitus without complications
CPT/HCPCS: 36415; 80053; 81001; 83690; 85025; 87077; 87086; 87186; 87637; 96361; 96374; 99284; A9270; J2405; J7030

== ENCOUNTER 2024-02-06 09:21 | Emergency (ER) | payer OTHER, SELFPAY ==
--- NOTE | ~2024-02-06 | CT_ITS ---
Non-contrast CT scan of the Abdomen and Pelvis Clinical indication: Nausea and vomiting Technique: 2.5 mm axial scans were obtained through the abdomen and pelvis without intravenous or or al contrast. Dose reduction technique was used on this scan by utilizing automated exposure control a nd iterative reconstruction technique. The dose-length product (DLP) was 456.56 mGy-cm. COMPARISON: 12/22/2023 Findings: Images through the lung bases reveal no abnormalities. There is no evidence of renal or ureteral calculi. The kidneys and the ureters are nondilated. The liver, spleen, pancreas, and adrenals appear normal. Gallbladder absent. There is no aortic aneur ysm. There is no evidence of bowel obstruction. Images through the pelvis were performed. There is no evidence of ascites or lymphadenopathy. Urinary bladder unremarkable. No pelvic mass seen. Impression: No significant abnormality seen. Reviewed, dictated and finalized at [facility]. [employer] Impression: No significant abnormality seen.
[2024-02-06 09:30] VITALS: BP 115/83; PULSE 101; RESP 16; TEMP 36.6; O2SAT 97
[2024-02-06] MEDS: diphenhydrAMINE HCl INJ 50 MG/ML VIAL 25 MG IV PUSH (10:04)
[2024-02-06] MEDS: METOCLOPRAMIDE HCL INJ 10 MG/2 ML VIAL IV PUSH (10:04)
[2024-02-06 10:07] LABS: Basophils Absolute Auto 0.1 K/mm3 (0.0-0.1); Basophils Percent Auto 1.2 % (0.2-1.2); Eosinophils Absolute Auto 0.1 K/mm3 (0-0.3); Eosinophils Percent Auto 0.9 % (0-4.4); Hematocrit 44.2 % (37.0-47.0); Hemoglobin 14.6 g/dL (12.0-15.0); Immature Granulocyte Absolute 0.01 K/mm3 (0.00-0.031); Immature Granulocyte Percent A 0.2 % (0-0.5); Lymphocytes Absolute Auto 1.52 K/mm3 (0.9-3.2); Lymphocytes Percent Auto 26.2 % (18.3-44.2); Mean Corpuscular Volume 81.7 fl (80-100); Mean Platelet Volume 9.4 fl (7.4-10.4); Monocytes Absolute Auto 0.4 K/mm3 (0.1-0.6); Monocytes Percent Auto 6.4 % (2.6-8.5); Neutrophils Absolute Auto 3.8 K/mm3 (1.3-6.7); Neutrophils Percent Auto 65.1 % (45.5-73.1); Platelet Count Result 251 k/mm3 (150-375); Red Blood Count 5.41 M/mm3 (4.2-5.4); Red Cell Distribution Width 13.8 % (11.5-14.5); White Blood Count 5.8 K/mm3 (4.5-10.0)
[2024-02-06] MEDS: LACTATED RINGERS 1,000 ML 999 ML IV CONT (10:10)
[2024-02-06 10:21] LABS: Add Urine Microscopic? YES; Appearance Urine Cloudy (Clear); Bacteria Urine None Seen /hpf; Bilirubin Urine 2+ (Negative); Blood Urine Negative (Negative); Color Urine Dark Yellow (Yellow); Glucose Urine UA Trace mg/dL (Negative); Ketones Urine 2+ mg/dL (Negative); Leukocyte Esterase Ur 2+ LEU/UL (Negative); Mucus Urine Present /lpf; Need Manual Microscopic Reviewed; Nitrate Urine Negative (Negative); Non Pathogenic Casts >20; Protein Urine 2+ mg/dL (Negative); Specific Grav Ur 1.025 (1.001-1.035); Squamous Epithelial Cell Urine Few /hpf (Few); WBC Urine >100 /hpf (0-3)
--- NOTE | 2024-02-06 10:24 | ECG_ITS ---
Test Date: 2024-02-06 10:58:44 Measurements Intervals [place] Rate: 87 P: 3 VT: 152 QRS: 5 QRSD: 70 T: -2 QT: 358 QTc: 432 Interpretive Statements SINUS RHYTHM BORDERLINE ST-T WAVE ABNORMALITY- ANT/INF LEADS BASELINE ARTIFACT- II, III, AVF BORDERLINE ECG No previous ECG available for comparison Electronically Signed On 02-06-2024 11:31:34 ADJUNCT FACULTY FOR MEDICAL TERMINOLOGY by Oscar Lopez D.O.
[2024-02-06 10:25] LABS: Alanine Aminotransferase 86 U/L (6-35); Albumin Level 4.8 g/dL (3.5-5.1); Alkaline Phosphatase 111 U/L (38-126); Anion Gap 18 mmol/L (4-12); Aspartate Amino Transferase 109 U/L (14-36); Bilirubin,Total 1.9 mg/dL (0.2-1.3); Blood Urea Nitrogen 11 mg/dL (7-17); Calcium 9.8 mg/dL (8.4-10.2); Carbon Dioxide 25 mmol/L (22-30); Chloride 92 mmol/L (98-107); Estimated CRCL calculation 62 ml/min; Estimated Glomerular Filt Rate > 60; Glucose 257 mg/dL (65-110); Lipase 212 U/L (23-300); Potassium 2.5 mmol/L (3.4-5.0); Sodium 135 mmol/L (137-145)
[2024-02-06] MEDS: POTASSIUM CHLORIDE 20 MEQ ER TABLET 40 MEQ PO (11:34)
[2024-02-06 11:54] VITALS: BP 126/82; PULSE 99; RESP 16; O2SAT 97
[2024-02-06] MEDS: POTASSIUM CHLORIDE INJ 40 MEQ in SODIUM CHLORIDE 0.9% IV 500 ML 130 MEQ IVPB (11:55)
--- NOTE | 2024-02-06 12:05 | ED.NAVMDI ---
HPI - Nausea/Vomiting/Diarrhea General Chief complaint: Nausea/Vomiting/Diarrhea Stated complaint: vomiting Time Seen by Provider: 02/06/24 09:25 History of Present Illness HPI Narrative: Patient presents here with nausea vomiting since last night, has had this happen in past, after the Zofran but she threw it back up. Some epigastric discomfort. Related Data Allergies Allergy/AdvReac Type Severity Reaction Status Date / Time No Known Allergies Allergy Verified 02/06/24 09:34 Review of Systems Review of Systems: All systems reviewed & are unremarkable except as noted in HPI and below PMFSH Past Medical History Medical History (Updated 02/06/24 @ 16:47 by Bharati Bolton MD) History of diabetes mellitus Social History Social History (Updated 05/24/23 @ 15:21 by Manuela Hardy PA-C) Substance use: never Exam Narrative: EXAMINATION OF ORGAN SYSTEMS/BODY AREAS: Constitutional: Vital signs per nursing GENERAL: Appears uncomfortable in bed HEAD: Normal with no signs of head trauma. EYES: EOMI, conjunctiva normal ENT: Hearing grossly intact LUNGS: Nonlabored breathing. HEART: [Regular rate and rhythm] ABD: [Soft], [nontender to palpation] EXT: Normal range of motion SKIN: [No rashes or lesions.] NEURO: [Alert and oriented x 3. No gross focal sensory or strength deficits.] PSYCH: Normal affect Course Vital Signs Vital signs: Vital Signs Temperature 97.8 F 02/06/24 09:30 Pulse Rate 101 H 02/06/24 09:30 Respiratory Rate 16 02/06/24 09:30 Blood Pressure 115/83 02/06/24 09:30 Pulse Oximetry 97 02/06/24 09:30 Oxygen Delivery Room Air 02/06/24 09:30 Temperature 97.8 F 02/06/24 09:30 Pulse Rate 78 02/06/24 16:50 Respiratory Rate 16 02/06/24 16:50 Blood Pressure 112/73 02/06/24 16:50 Pulse Oximetry 97 02/06/24 16:50 Oxygen Delivery Room Air 02/06/24 09:30 MDM - Nausea/Vomiting/Diarrhea MDM Narrative Medical decision making narrative: 63-year-old female presenting with nausea, vomiting, she does appear uncomfortable on exam Back abdomen soft without tenderness. EKG here shows sinus rhythm rate 87, normal VT, QRS, QTC, no ST elevations or depressions or signs of acute ischemia on my independent interpretation. Labs concerning for very low potassium at 2.5, with some slightly elevated LFTs, and possible UTI. Given this I did obtain a CT to rule out septic stone or other abnormality, thankfully CT essentially normal per Radiology interpretation. Will replete potassium here. patient on re-evaluation feels better after nausea medication. Agreeable to plan. Repeat BMP now normal electrolytes. Patient still very well appearing and in no distress, no longer having nausea or vomiting. Follow-up to GI given. Stable for discharge with return precautions. Discussed with patient and family at bedside Lab Data 02/06/24 09:59 02/06/24 16:18 Labs: Lab Results 02/06/24 02/06/24 Range/Units 09:59 16:18 WBC 5.8 (4.5-10.0) K/mm3 RBC 5.41 H (4.2-5.4) M/mm3 Hgb 14.6 (12.0-15.0) g/dL Hct 44.2 (37.0-47.0) % MCV 81.7 (80-100) fl MCH 27.0 (26-34) pg MCHC 33.0 (32-36) g/dl RDW 13.8 (11.5-14.5) % Plt Count 251 (150-375) k/mm3 MPV 9.4 (7.4-10.4) fl Immature Gran % (Auto) 0.2 (0-0.5) % Neut % (Auto) 65.1 (45.5-73.1) % Lymph % (Auto) 26.2 (18.3-44.2) % [place] % (Auto) 6.4 (2.6-8.5) % Eos % (Auto) 0.9 (0-4.4) % Baso % (Auto) 1.2 (0.2-1.2) % Lymph # (Auto) 1.52 (0.9-3.2) K/mm3 [place] # (Auto) 0.4 (0.1-0.6) K/mm3 Eos # (Auto) 0.1 (0-0.3) K/mm3 Baso # (Auto) 0.1 (0.0-0.1) K/mm3 Abs Immat Gran (auto) 0.01 (0.00-0.031) K/mm3 Absolute Neuts (auto) 3.8 (1.3-6.7) K/mm3 Absolute Nucleated RBC 0.000 (0.0-0.012) K/mm3 Nucleated RBC % 0.0 (0.0-0.2) % Sodium 135 L 136 L (137-145) mmol/L Potassium 2.5 L* 3.8 (3.4-5.0) mmol/L Chloride 92 L 99 (98-107) mmol/L Carbon Dioxide 25 28 (22-30) mmol/L Anion Gap 18 H 9 (4-12) mmol/L BUN 11 8 (7-17) mg/dL Creatinine 0.70 0.60 L (0.7-1.0) mg/dL Estim Creat Clear Calc 62 71 ml/min Estimated GFR > 60 > 60 (59 - ) Glucose 257 H 161 H (65-110) mg/dL Calcium 9.8 8.9 (8.4-10.2) mg/dL Magnesium 1.6 (1.6-2.3) mg/dL Total Bilirubin 1.9 H (0.2-1.3) mg/dL AST 109 H (14-36) U/L ALT 86 H (6-35) U/L Alkaline Phosphatase 111 (38-126) U/L Total Protein 8.0 (6.3-8.2) g/dL Albumin 4.8 (3.5-5.1) g/dL Lipase 212 (23-300) U/L Urine Color Dark yellow (Yellow) Urine Appearance Cloudy H (Clear) Urine pH 6.0 (5.0-9.0) Ur Specific [place] 1.025 (1.001-1.035) Urine Protein 2+ H (Negative) mg/dL Urine Glucose (UA) Trace H (Negative) mg/dL Urine Ketones 2+ H (Negative) mg/dL Ur Blood (Man) Negative (Negative) Urine Nitrate Negative (Negative) Urine Bilirubin 2+ H (Negative) Urine Urobilinogen 1.0 (<2.0) mg/dL Add Ur Microanalysis Reviewed Leukocyte Esterase Rfl 2+ H (Negative) AMY/UL Urine RBC 11-20 H (0-2) /hpf Urine WBC >100 H (0-3) /hpf Ur Squamous Epith Cells Few (Few) /hpf Urine Bacteria None seen /hpf Urine Casts >20 Urine Mucus Present /lpf Discharge Plan Discharge Clinical Impression: Nausea and vomiting, Hypokalemia Patient Disposition: Home, Self-Care Condition: Improved Instructions: Hypokalemia (ED), Acute Nausea and Vomiting (ED) Additional Instructions: Please follow up with your doctor; you can always return for any further issues. Patient Language: [place] Citizen Prescriptions: New metoclopramide HCl [Reglan] 10 mg tablet 10 mg PO Q6H PRN (Reason: nausea and vomiting) Qty: 10 0RF potassium chloride 20 mEq packet 20 meq PO DAILY Qty: 5 0RF No Action cefdinir 300 mg capsule 300 mg PO Q12H 7 Days Qty: 14 0RF ondansetron 4 mg tablet,disintegrating 4 mg PO Q8H PRN (Reason: nausea and vomiting) Qty: 10 0RF omeprazole 20 mg tablet,delayed release (DR/EC) 20 mg PO DAILY Qty: 14 0RF ondansetron 4 mg tablet,disintegrating 4 mg PO Q8H PRN (Reason: nausea and vomiting) Qty: 14 0RF polyethylene glycol 3350 [Miralax] 17 gram powder in packet 17 g PO DAILY Qty: 14 0RF docusate sodium [Col-Rite] 100 mg capsule 100 mg PO BID Qty: 14 0RF hydrocortisone acetate [Anusol-HC] 25 mg suppository 25 mg RECTAL BID Qty: 12 0RF amoxicillin-pot clavulanate 875-125 mg tablet 1 tablet PO Q12H Qty: 10 0RF cyclobenzaprine 10 mg tablet 10 mg PO TID PRN (Reason: muscle spasm) Qty: 14 0RF ondansetron 4 mg tablet,disintegrating 4 mg PO Q6H PRN (Reason: nausea and vomiting) Qty: 10 0RF cephalexin 500 mg capsule 500 mg PO Q12H Qty: 14 0RF potassium chloride 20 mEq tablet extended release 20 meq PO BID Qty: 7 0RF acetaminophen [Tylenol Extra Strength] 500 mg tablet 1,000 mg PO Q6H PRN (Reason: pain) Qty: 50 0RF ondansetron 4 mg tablet,disintegrating 4 mg PO Q8H PRN (Reason: nausea and vomiting) Qty: 10 0RF Follow-up/Referrals: Erasmo,LUZ MARIA Quigley [Primary Care Provider] - Kalin Hicks MD [Physician] - 2 Days
[2024-02-06 12:28] LABS: Magnesium 1.6 mg/dL (1.6-2.3)
[2024-02-06] MEDS: POTASSIUM CHLORIDE 20 MEQ PACKET (FOR LIQUID) 40 MEQ PO (13:06)
[2024-02-06] MEDS: MAGNESIUM SULF 2 GM/WATER 50ML 2 GM/50 ML BAG IVPB (13:08)
[2024-02-06] MEDS: ONDANSETRON INJ 4 MG/2 ML VIAL IV PUSH (14:16)
[2024-02-06 14:49] VITALS: BP 109/82; PULSE 87; RESP 14; O2SAT 97
[2024-02-06 16:35] LABS: Anion Gap 9 mmol/L (4-12); Blood Urea Nitrogen 8 mg/dL (7-17); Calcium 8.9 mg/dL (8.4-10.2); Carbon Dioxide 28 mmol/L (22-30); Chloride 99 mmol/L (98-107); Estimated CRCL calculation 71 ml/min; Estimated Glomerular Filt Rate > 60; Glucose 161 mg/dL (65-110); Potassium 3.8 mmol/L (3.4-5.0); Sodium 136 mmol/L (137-145)
[2024-02-06 16:50] VITALS: BP 112/73; PULSE 78; RESP 16; O2SAT 97
== END 2024-02-06 17:11 | disposition home or self-care (01) ==
PROVIDERS: Emergency Provider Emergency Medicine; PCP Physician Assistant
DX: R11.2 Nausea with vomiting, unspecified (principal); E87.6 Hypokalemia; E11.9 Type 2 diabetes mellitus without complications; R94.31 Abnormal electrocardiogram [ECG] [EKG]
CPT/HCPCS: 36415; 74176; 80048; 80053; 81001; 83690; 83735; 85025; 87077; 87086; 87186; 93005; 96361; 96365; 96366; 96367; 96375; 99284; A9270; J0696; J1200; J2405; J2765; J3475; J3480; J7040; J7120

== ENCOUNTER 2024-06-11 13:51 | Outpatient (CLI) | payer OTHER, SELFPAY ==
--- NOTE | ~2024-06-11 | US_ITS ---
EXAMINATION TYPE: US breast LT limited COMPARISON: NONE REASON FOR STUDY: N63.23 - Unspecified lump in the left breast, lower outer... TECHNIQUE: Targeted sonographic evaluation of the left breast was performed. INTERPRETATION: Scanning was performed in the 4:00 position left breast, 2 cm from the nipple. No solid or cystic les ion seen. No dilated ducts seen. IMPRESSION: No sonographic abnormality seen at the 4:00 position left breast, 2 cm from the nipple. Patient had r eportedly negative outside mammography and sonography in April of this year. Consider repeat mammog dhaval based upon degree of clinical suspicion. BI-RADS CATEGORY: BI-RADS 1: Negative Reviewed, dictated and finalized at location M. IMPRESSION: No sonographic abnormality seen at the 4:00 position left breast, 2 cm from the nipple. Patient had reportedly negative outside mammography and sonography in April of this year. Consider repeat mammography based upon degree of clinical suspicion. BI-RADS CATEGORY: BI-RADS 1: Negative
--- OUTSIDE RECORDS SUMMARY | 2024-06-11 15:35 | XMS_ITS | Clinical Summary ---
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 Active metFORMIN (GLUCOPHAGE) 850 MG tablet Take 1 tablet (850 mg total) by mouth daily with breakfast. Active chlorthalidone (HYGROTEN) 25 MG tablet Take 1 tablet (25 mg total) by mouth daily. Active alendronate (FOSAMAX) 70 MG tablet Take 1 tablet (70 mg total) by mouth every 7 days. Wednesdays Active potassium chloride CR (KLOR-CON M) 20 MEQ tablet Take 1 tablet (20 mEq total) by mouth 2 (two) times daily. 4 Active vitamin D2, ergocalciferol, (DRISDOL) 1.25 mg capsule Take 1 capsule (1.25 mg total) by mouth every 7 days. Wednesdays Active pantoprazole EC (PROTONIX) 40 MG tablet Take 1 tablet (40 mg total) by mouth daily. 30 tablet 4 Active ondansetron (ZOFRAN-ODT) 4 MG disintegrating tablet Take 1 tablet (4 mg total) by mouth every 8 (eight) hours as needed for Nausea. 30 tablet 4 Active Active Problems Problem Noted Date Diagnosed Date Acute gastritis 02/17/2024 Screen for colon cancer 12/30/2022 Overview (12/30/2022): Added automatically from request for surgery [id number] H. pylori infection 12/14/2022 Overview (12/14/2022): Added automatically from request for surgery [id number] Epigastric pain 09/27/2022 Family History Medical History Relation Comments Liver Disease Father Dementia Mother Relation Status Comments Father Mother Social History Tobacco Use Types Packs/Day Years Used Date Smoking Tobacco: Never Smokeless Tobacco: Never Tobacco Cessation:Counseling Given: Not Answered Alcohol Use Standard Drinks/Week Comments Never 0 (1 standard drink = 0.6 oz pur e alcohol) B1300 Health Literacy Answer Date Recor ded How often do you need to hav e someone help you when you read instructions, pamphlets, or other written material from your doctor or pharmacy? Always 02/17/2024 [facility] Utilities Answer Date Recorded In the past 12 months has e FileString, gas, oil, or water Tie Society threatened to shut off services in your home? No 02/17/2024 Humiliation, Afraid, Rape, and Kick questionnair e Answer Date Recorded Within the last year, have y ou been afraid of your partner or ex-partner? No 02/17/2024 Within the last year, have y ou been humiliated or emotionally abused in other ways by your partner or ex-partner? No Within the last year, have y ou been kicked, hit, slapped, or otherwise physically hurt by your partner or ex-partner? No 02/17/2024 Within the last year, have y ou been raped or forced to have any kind of sexual activity by your partner or ex-partner? No 02/17/2024 Social Connection and Isolat ion Panel [NHANES] Answer Date Recorded In a typical week, how many times do you talk on the phone with family, friends, or neighbors? More than three times a week 02/17/2024 How often do you get togethe r with friends or relatives? More than three times a week 02/17/2024 How often do you attend [facility] or alevism services? More than 4 times per year 02/17/2024 Do you belong to any clubs o r organizations such as worship groups, unions, fraternal or athletic groups, or school groups? Yes 02/17/2024 How often do you attend meet ings of the clubs or organizations you belong to? More than 4 times per year 02/17/2024 Are you , , di vorced, , never , or living with a partner? 02/17/2024 AUDIT-C Answer Date Recorded Q1: How often do you have a drink containing alcohol? Never 02/17/2024 Q2: How many drinks containi ng alcohol do you have on a typical day when you are drinking? Patient does not drink Q3: How often do you have si x or more drinks on one occasion? Never 02/17/2024 Overall Financial Resource Strain (CARDIA) Answe r Date Recorded How hard is it for you to pa y for the very basics like food, housing, medical care, and heating? Not hard at all 02/17/2024 PHQ-2 Answer Date Recorded Patient Health Questionnaire-2 Score 0 02/17/2024 Hunger Vital Sign Answer Date Recorded Within the past 12 months, y ou worried that your food would run out before you got the money to buy more. Never true 02/17/20 24 Within the past 12 months, t he food you bought just didn't last and you didn't have money to get more. Never true 02/17/2024 PRAPARE - Transportation Answer Date Re corded In the past 12 months, has l ack of transportation kept you from medical appointments or from getting medications? No 02/01 In the past 12 months, has l ack of transportation kept you from meetings, work, or from getting things needed for daily living? No 02/17/2024 Housing Stability Vital Sign Answer Abdifatah e Recorded In the last 12 months, was t here a time when you were not able to pay the mortgage or rent on time? No 09/28/2022 In the last 12 months, how many places have you lived? 1 09/28/2022 In the last 12 months, was t here a time when you did not have a steady place to sleep or slept in a correction (including now)? No 09/28/2022 Housing Stability Vital Sign Answer Abdifatah e Recorded In the last 12 months, was t here a time when you were not able to pay the mortgage or rent on time? No 02/17/2024 In the past 12 months, how m any times have you moved where you were living? 0 02/17/2024 At any time in the past 12 m [facility], were you homeless or living in a correction (including now)? No 02/17/2024 Comments No Sex and Gender Information Value Date Recorded Sex Assigned at Not on file Legal Sex Female 1:34 PM CDT Gender Identity Not on file Sexual Orientation Not on file Last Filed Vital Signs Vital Sign Reading Time Taken Comments Blood Pressure 111/71 02/18/2024 8:30 AM [facility] [employer] Pulse 84 02/18/2024 8:30 AM [facility] [employer] Temperature 36.6 C (97.9 F) 02/18/2024 8:30 AM [employer] Respiratory Rate 16 02/18/2024 8:30 AM [employer] Oxygen Saturation 96% 02/18/2024 8:30 AM [employer] Inhaled Oxygen Concentration - - Weight 63.1 kg (139 lb 1.8 oz) 02/17/2024 7:53 P M [facility] [employer] Height 154.9 cm (5' 1 ) 02/17/2024 1:01 PM [employer] Body Mass Index 26.28 02/17/2024 1:01 PM [employer] Plan of Treatment Health Maintenance Due Date Last Done Comments Colorectal Cancer Screening Colonoscopy (10 Years) 1959 Annual Physical 10/15/1962 DTaP, Tdap and Td Vaccines ( 1 - Tdap) 10/15/1978 Mammogram Screening 1999 Zoster Vaccines (1 of 2) 10/15/2009 COVID-19 Vaccine ( - 2023-2 5 season) 2023 Influenza Adult (#1) 2024 PHQ-2 (Physician [place]) 04/03/2024 02/17/2024 PHQ-2 (Phys[facility] [place]) 02/16/2025 02/17/2024 RSV Immunization or 60+ Years (1 - 1-dose 75+ series) 10/15/2034 Hepatitis C Completed 09/30/2022 Meningococcal B Vaccine Aged Out No l onger eligible based on patient's age to complete this topic Meningococcal Vaccine Aged Out No fatimah karlee eligible based on patient's age to complete this topic Pneumococcal Vaccine: Pediat rics (0 to 5 Years) and At-Risk Patients (6 to 64 Years) Aged Out No longer eligi ble based on patient's age to complete this topic RSV Immunizations Under 20 Months Aged Out No longer eligible based on patient's age to complete this topic Procedures Procedure Name Priority Date/Time Associated Diagnosis Comments HEPATITIS PANEL,ACUTE Routine 09/30/2022 8:02 AM CDT from Last 3 Months or Most Recently Relevant to Health Maintenance Results * HEPATITIS PANEL,ACUTE (09/30/2022 8:02 AM CDT) HEPATITIS B SURFACE AG NON-REACTI VE NON-REACTI VE 09/30/2022 9:54 AM CDT [facility] HEP B CORE IGM NON-REACTI VE NON-REACTI VE 09/30/2022 9:54 AM CDT [facility] HAV IGM NON-REACTI VE NON-REACTI VE 09/30/2022 9:54 AM CDT [facility] HEPATITIS C AB NON-REACTI VE NON-REACTI VE 09/30/2022 9:54 AM CDT [facility] 09/30/2022 8:02 AM CDT Pari Becker MD LABORATORY Final Result [facility] [address] [place] [address], from Last 3 Months or Most Recently Relevant to Health Maintenance Insurance [place] Advance Directives * Full Code (Latest Code Status on File) Date Activated Date Inactivated Comments 02/17/2024 4:56 PM 02/18/2024 4:22 PM * Full Code Date Activated Date Inactivated Comments 09/27/2022 9:19 PM 09/30/2022 1:48 PM 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
--- OUTSIDE RECORDS SUMMARY | 2024-06-11 15:35 | XMS_ITS | Patient Health Summary ---
Author Organization [facility] [employer] Address [address] [place] [address] Care Team Providers Care Wood Planer Name Role Phone Gris Hermosillo MD Primary Care Provider [phone] Note from [facility],non-owned Affiliates and Associated Physician Practices is amultiple site organization consisting of ambulatory clinics and hospital sitesin [place], [place], [place] and [place]. This disclosure is being madepursuant to the Care Everywhere program and may not contain all information available regarding this patient. Last updated 17.[facility] Allergies No known active allergies Medications * Be aware that medications may not be up to date on this document. Alwaysverify current medications with the patient. * potassium chloride ER (Klor-Con M) 20 MEQ tablet(Started 06/23/2023) Take 1 (one) tablet by mouth 2 times daily As directed. * amLODIPine (Norvasc) 5 MG tablet(Started 06/20/2023) Take 1 (one) tablet by mouth once daily * chlorthalidone (Hygroton) 25 MG tablet(Started 06/20/2023) TAKE TWO TABLETS BY MOUTH EVERY MORNING FOR BLOOD PRESSURE AND FLUID RETENTION * vitamin D, ergocalciferol, (Drisdol) 1.25 MG (55054 UT) capsule(Started 09/26/2023) Take 1 (one) capsule by mouth every 7 days * metFORMIN (Glucophage) 850 MG tablet Take 1 (one) tablet by mouth 2 times daily with morning and evening meal * alendronate (Fosamax) 70 MG tablet Take 1 (one) tablet by mouth every 7 days before meal * pantoprazole EC (Protonix) 40 MG tablet Take 1 (one) tablet by mouth 2 times daily * sucralfate (Carafate) 1 GM/10ML suspension Take 10 mL by mouth 4 times daily Active Problems Problem Noted Date Diagnosed Date Weight loss 03/11/2024 Moderate malnutrition 03/08/2024 Abdominal pain 03/07/2024 Acute gastritis 02/17/2024 Class 2 severe obesity due t o excess calories with serious comorbidity and body mass index (BMI) of 35.0 to 35.9 in adult 09/18/2023 Hyperlipidemia associated with type 2 diabetes m ellitus 09/18/2023 Metabolic dysfunction-associated steatohepatitis (MASH) 07/10/2023 Hyperbilirubinemia 05/06/2023 07/10/2023 Hypokalemia 05/06/2023 Type 2 diabetes mellitus wit hout complication, without long-term current use of insulin 05/06/2023 Elevated liver function tests 05/05/2023 Essential hypertension 05/05/2023 Hematemesis 05/05/2023 07/10/2023 Screen for colon cancer 12/30/2022 Helicobacter pylori infection 12/14/2022 Epigastric pain 09/27/2022 07/10/2023 Social History Tobacco Use Types Packs/Day Years Used Date Smoking Tobacco: Former Cigarettes Q uit: 07/09/2021 Smokeless Tobacco: Never Tobacco Cessation:Counseling Given: Not Answered Alcohol Use Standard Drinks/Week Comments Never 0 (1 standard drink = 0.6 oz pur e alcohol) Sex and Gender Information Value Date Recorded Sex Assigned at Not on file Gender Identity Not on file Sexual Orientation Not on file Last Filed Vital Signs Vital Sign Reading Time Taken Comments Blood Pressure 120/85 05/06/2024 8:30 AM BREWER HELPER Pulse 73 05/06/2024 8:30 AM BREWER HELPER Temperature 36.5 C (97.7 F) 05/06/2024 8:30 AM BREWER HELPER Respiratory Rate - - Oxygen Saturation 100% 05/06/2024 8:30 AM BREWER HELPER Inhaled Oxygen Concentration - - Weight 61.5 kg (135 lb 9.6 oz) 05/06/2024 8:30 A M BREWER HELPER Height 149.9 cm (4' 11 ) 05/06/2024 8:30 AM BREWER HELPER Body Mass Index 27.39 05/06/2024 8:30 AM BREWER HELPER Procedures * SD LIVER ELASTOGRAPHY(Performed 05/06/2024) Performed for Elevated liver enzymes * COMPREHENSIVE METABOLIC PANEL(Performed 07/10/2023) Performed for Elevated liver enzymes * CBC W AUTO DIFFERENTIAL(Performed 07/10/2023) Performed for Elevated liver enzymes * SD LIVER ELASTOGRAPHY(Performed 07/10/2023) Performed for Elevated liver enzymes Results * SD LIVER ELASTOGRAPHY (05/06/2024 8:48 AM BREWER HELPER) Narrative Cristiano Beach MD - 05/06/2024 8:48 AM BREWER HELPER Cristiano Beach MD 05/06/2024 10:25 AM Diagnosis: Elevated liver enzymes RN verified patient NPO for prior 3 hours. Procedure explained. Date of Exam: 05/06/2024 Liver Stiffness: (LSM, kPa) median: 8.7 IQR/Median% (ideally < 30%): 18% CAP (controlled attenuation parameter): 262 Technical Difficulty: None Ordering Provider: Namita Schwartz APRN-CNP Phone Fax Fibroscan interpretation: I have personally reviewed the Fibroscan report and associated tracings. The calculated Liver Stiffness Measurement (LSM, kPa) indicates that: The probability of advanced liver fibrosis is: low to moderate. The loss of ultrasound signal, (controlled attenuation parameter, CAP [dB/m]), indicates that the probability of hepatic steatosis is: moderate. Cristiano Padron MD The following criteria are used to indicate the probability of advanced (stage 3-4) fibrosis: < 7.0 kPa: low 7.0-8.9 kPa: low to moderate 9.0-14.9 kPa: moderate 15-20 kPa: high > 20 kPa: very high Liver stiffness > 12 kPa is associated with an increased risk of cirrhosis-related complications over the next 3-5 years (Carmen, 2022). Liver stiffness > 20 kPa is also associated with a high probability of complications of portal hypertension including varices and ascites. Liver stiffness > 50 kPa is associated with a high risk of variceal bleeding. These interpretations are based on the following published data: Carmen J, Marly phillips H, Cassidy M, Joselin Rodriges, Manolo M, Cure S, Wildero J, Nasr P, Tallab L, Cangracet CM, Kemikaela S, S ncteresa Y, Yousuf E, Aneta A, Chikis M, Neto J, Swathi A and Chace M. Non-invasive tests accurately stratify patients with NAFLD based on their risk of liver-related events. J Hepatol (2021) 76: 4733-2303. Earle PJ, Bimal M, Marily M, et al. Accuracy of FibroScan controlled attenuation parameter and liver stiffness measurement in assessing steatosis and fibrosis in patients with nonalcoholic fatty liver disease. Gastroenterology 2019;156:9974-5136. Jordi SCHAFFER, Jonathan R, Van Natdeacon ML, et al. Vibration-controlled transient elastography to assess fibrosis and steatosis in patients with nonalcoholic fatty liver disease. Clin Gastroenterol Hepatol 2019;17:156-163. Note that scores have been developed that incorporate the Fibroscan liver stiffness measurement from large cohorts of patients with liver biopsies to further refine the ability of Fibroscan to identify patients with MASH and advanced fibrosis. These include the FAST (Fibroscan-AST) score (Sondra, 2021) and the Agile3+ and Agile4 scores (Rahat, 2022; Nedra, 202). Sondra TA, Van Natta ML, Jaimie Phillips, Ramírez A, et al. Validation of the accuracy of the FAST score for detecting patients with at-risk nonalcoholic steatohepatitis (SOLORZANO) in a [place] cohort and comparison to other non-invasive algorithms. PLoS ONE (2021) 17: [id number]. Rahat VILA, Ngoc J, Cristy ZM, et al. Enhanced diagnosis of advanced fibrosis and cirrhosis in individuals with NAFLD using FibroScan-based Agile scores. J Hepatol (2022) 78: 247-259. Nedra et al. Vibration-controlled transient elastography scores to predict liver-related events in steatotic liver disease. COTY (2023) 331: 8732-1022 Fibroscan LSM can also be used with laboratory parameters without formulas to assess prognosis. According to the Baveno-VII criteria (de Franchis, 2021), Fibroscan LSM <=15 kPa plus a platelet count of >=510f092/L rules out clinically significant portal hypertension (sensitivity and negative predictive value >90%) in patients with compensated advanced chronic liver disease. Chang R, Mere J, Julianne G, Nicole T, Rhoda Rodriges on behalf of the [facility] [place] VII Faculty. [facility]--Renewing consensus in portal hypertension. J Hepatol (2021) 76: 959-974 Assessing the likelihood of advanced fibrosis in patients with intermediate liver stiffness measurement (LSM) by Fibroscan (e.g., 8-15 kPa) can be improved by also calculating the FIB-4 score (Ashley et al. Hepatology Communications 2019;3:3566-2654) or NAFLD Fibrosis score (Ervin et al. Clinical Gastroenterology and Hepatology 2019;17:2092-2685 using routine clinical data. Notes: 1. Fibroscan cannot reliably identify earlier stages of fibrosis (ie distinguish F0 from F1 and F2) and thus a histologic stage cannot be predicted from the Fibroscan reading. 2. Liver stiffness can be increased by factors other than fibrosis including passive congestion, infiltrative processes, active alcoholism, recent moderate alcohol consumption in the 2 weeks before the exam, biliary obstruction and marked inflammation. The interpretation of the Fibroscan result provided above may not have taken such clinical factors into account. 3. Identifying steatosis by an elevated CAP score (> 250 db/m) is useful for establishing a diagnosis of steatotic liver disease. However the severity of steatosis does not correlate with liver related outcomes. Disease etiology also influences Fibroscan cutoff values for fibrosis stages and the following cutoffs have been proposed (Wili et al, Clin Gastro Hepatol 2015; 13:27-36): Cutoffs for Stage 3 and Stage 4 fibrosis respectively: Hepatitis B: >9 and >11.7 kPa Hepatitis C: >9.5 and >12.5 kPa HCV-HIV: >11 and >14 kPa Cholestatic liver diseases: >10 and >17.9 kPa MASLD/MASH: >10 and >14 kPa CAP estimates of steatosis: normal <200 dB/m mild 200 to 250 dB/m moderate 250-290 dB/m substantial > 290 dB/m (Note that Fibroscan is not a quantitative measure of liver fat.) These criteria are estimates and may change as additional supporting data becomes available. (This additional interpretive data was last updated 1/3/25.) [email or web address] Provider Unknown PROCEDURE/MINOR SURG ICAL ORDERABLES * CBC WITH DIFFERENTIAL (07/10/2023 11:29 AM T) WBC 6.8 4.0 - 10.7 x10E9/L 07/10/2023 12:08 PM [facility] RBC Count 5.20 3.90 - 5.20 x10E12/L 07/10/2023 12:08 PM [facility] Hemoglobin 14.3 11.9 - 15.8 g/dL 07/10/2023 12:08 PM [facility] Hematocrit 42.3 34.8 - 46.1 % 07/10/2023 12:08 PM [facility] MCV 81.3 80.0 - 98.0 fL 07/10/2023 12:08 PM [facility] MCH 27.5 26.7 - 33.6 pg 07/10/2023 12:08 PM [facility] MCHC 33.8 31.7 - 36.3 g/dL 07/10/2023 12:08 PM [facility] RDW-CV 12.5 11.3 - 14.8 % 07/10/2023 12:08 PM [facility] Platelet Count 274 150 - 420 x10E9/L 07/10/2023 12:08 PM [facility] MPV 10.1 7.8 - 11.4 fL 07/10/2023 12:08 PM [facility] Neutrophil % 55.2 41.0 - 74.0 % 07/10/2023 12:08 PM [facility] Lymphocyte % 37.4 17.0 - 47.0 % 07/10/2023 12:08 PM [facility] Monocyte % 5.2 3.0 - 11.0 % 07/10/2023 12:08 PM [facility] Eosinophil % 0.9 0.0 - 7.0 % 07/10/2023 12:08 PM [facility] Basophil % 1.0 0.0 - 1.6 % 07/10/2023 12:08 PM [facility] Immature Granulocytes % 0.3 0.0 - 1.0 % 07/10/2023 12:08 PM [facility] Neutrophil Absolute 3.73 1.60 - 7.50 x10E9/L 07/10/2023 12:08 PM [facility] Lymphocyte Absolute 2.53 1.00 - 4.40 x10E9/L 07/10/2023 12:08 PM [facility] Monocyte Absolute 0.35 0.15 - 1.00 x10E9/L 07/10/2023 12:08 PM [facility] Eosinophil Absolute 0.06 0.00 - 0.60 x10E9/L 07/10/2023 12:08 PM [facility] Basophil Absolute 0.07 0.00 - 0.13 x10E9/L 07/10/2023 12:08 PM [facility] Blood BLOOD SPECIMEN / Unknown Lab Venipuncture / Unknown 07/10/2023 11:29 AM CDT 07/10/2023 11:57 AM CDT Namita Schwratz [employer] G-ACTION FINISHER LAB - HEMATO LOGY ORDERABLES [facility] [address] [place] [id number] [phone] * (ABNORMAL) COMPREHENSIVE METABOLIC PANEL (07/10/2023 11:29 AM CDT) BUN 11 7 - 26 mg/dL 07/10/2023 12:30 PM [facility] Creatinine 0.83 0.56 - 0.96 mg/dL 07/10/2023 12:30 PM [facility] Sodium 136 136 - 145 mmol/L 07/10/2023 12:30 PM [facility] Potassium 3.3(L) 3.5 - 4.5 mmol/L 07/10/2023 12:30 PM [facility] Chloride 98 98 - 107 mmol/L 07/10/2023 12:30 PM [facility] CO2 29 22 - 29 mmol/L 07/10/2023 12:30 PM [facility] Glucose 117(H) 70 - 115 mg/dL 07/10/2023 12:30 PM [facility] Calcium 10.5(H) 8.4 - 10.2 mg/dL 07/10/2023 12:30 PM [facility] Protein Total 7.9 6.0 - 8.3 g/dL 07/10/2023 12:30 PM [facility] Albumin 4.1 3.4 - 5.0 g/dL 07/10/2023 12:30 PM [facility] Bilirubin Total 0.9 0.2 - 1.2 mg/dL 07/10/2023 12:30 PM [facility] Alkaline Phosphatase 90 40 - 150 U/L 07/10/2023 12:30 PM [facility] ALT 73(H) 5 - 55 U/L 07/10/2023 12:30 PM [facility] AST 62(H) 5 - 34 U/L 07/10/2023 12:30 PM [facility] Anion Gap 9 6 - 16 07/10/2023 12:30 PM [facility] BUN/Creatinine Ratio 13 7 - 23 07/10/2023 12:30 PM [facility] Osmolality Calculated 282 275 - 295 mOsm/kg 07/10/2023 12:30 PM [facility] Albumin/Globulin Ratio 1.1 1.1 - 2.3 07/10/2023 12:30 PM [facility] eGFR by CKD-EPI 79(L) >=90 mL/min/1.7 3 m2 07/10/2023 12:30 PM [facility] Blood BLOOD SPECIMEN / Unknown Lab Venipuncture / Unknown 07/10/2023 11:29 AM CDT 07/10/2023 11:57 AM CDT Namita Schwartz [employer] G-ACTION FINISHER LAB - CHEMIS TRY ORDERABLES [facility] [address] [place] [address], [facility] [phone] * PROC FIBROSCAN (07/10/2023 9:55 AM CDT) Narrative Cristiano Beach MD - 07/10/2023 9:55 AM CDT Cristiano Beach MD 07/11/2023 5:36 PM Diagnosis: Elevated liver enzymes RN verified patient NPO for prior 3 hours. Procedure explained. Date of Exam: 07/10/2023 Liver Stiffness: (LSM, kPa) median: 6.9 IQR/Median% (ideally < 30%): 22% CAP (controlled attenuation parameter): 281 Technical Difficulty: None Ordering Provider: Yaakov Schwartz CNP Phone Fax Fibroscan interpretation: I have personally reviewed the Fibroscan report and associated tracings. The calculated Liver Stiffness Measurement (LSM, kPa) indicates that: The probability of advanced liver fibrosis is: low. The loss of ultrasound signal, (controlled attenuation parameter, CAP [dB/m]), indicates that the probability of hepatic steatosis is: moderate. Cristiano Padron MD The following criteria are used to indicate the probability of advanced (stage 3-4) fibrosis: < 7.0 kPa: low 7.0-8.9 kPa: low to moderate 9.0-14.9 kPa: moderate 15-20 kPa: high > 20 kPa: very high Liver stiffness > 20 kPa is also associated with a high probability of complications of portal hypertension including varices and ascites. Liver stiffness > 50 kPa is associated with a high risk of variceal bleeding. These interpretations are based on the following published data: Earle PJ, Bimal M, Marily M, et al. Accuracy of FibroScan controlled attenuation parameter and liver stiffness measurement in assessing steatosis and fibrosis in patients with nonalcoholic fatty liver disease. Gastroenterology 2019;156:3400-3939. Jordi MS, Jonathan R, Van Beth ML, et al. Vibration-controlled transient elastography to assess fibrosis and steatosis in patients with nonalcoholic fatty liver disease. Clin Gastroenterol Hepatol 2019;17:156-163. Note that scores have been developed that incorporate the Fibroscan liver stiffness measurement from large cohorts of patients with liver biopsies to further refine the ability of Fibroscan to identify patients with MASH and advanced fibrosis. These include the FAST (Fibroscan-AST) score ([place], 2022) and the Agile3+ and Agile4 scores (Rahat, 2023). Snodra TA, Van Beth ML, Jaimie M, Ramírez A, et al. Validation of the accuracy of the FAST score for detecting patients with at-risk nonalcoholic steatohepatitis (SOLORZANO) in a [place] cohort and comparison to other non-invasive algorithms. PLoS ONE (2021) 17: [id number]. Rahat AJ, Ngoc J, Cristy ZM, et al. Enhanced diagnosis of advanced fibrosis and cirrhosis in individuals with NAFLD using FibroScan-based Agile scores. J Hepatol (2022) 78: 247-259. Fibroscan LSM can also be used with laboratory parameters without formulas to assess prognosis. According to the Baveno-VII criteria (de Sarabjit, 202), Fibroscan LSM ?15 kPa plus a platelet count of ?661d038/L rules out clinically significant portal hypertension (sensitivity and negative predictive value >90%) in patients with compensated advanced chronic liver disease. Chang R, Mere J, Charlie-Juli G, Reclare T, Rhoda C on behalf of the [employer] VII Faculty. [employer] VII--Renewing consensus in portal hypertension. J Hepatol (2021) 76: 959-974 Assessing the likelihood of advanced fibrosis in patients with intermediate liver stiffness measurement (LSM) by Fibroscan (e.g., 8-15 kPa) can be improved by also calculating the FIB-4 score (Ashley et al. Hepatology Communications 2019;3:4219-7323) or NAFLD Fibrosis score (Ervin et al. Clinical Gastroenterology and Hepatology 2019;17:9844-3561 using routine clinical data. Note: 1. Fibroscan cannot reliably identify earlier stages of fibrosis (ie distinguish F0 from F1 and F2) and thus a histologic stage cannot be predicted from the Fibroscan reading. 2. Liver stiffness can be increased by factors other than fibrosis including passive congestion, infiltrative processes, active alcoholism, recent moderate alcohol consumption in the 2 weeks before the exam, biliary obstruction and marked inflammation. The interpretation of the Fibroscan result provided above may not have taken such clinical factors into account. Disease etiology also influences Fibroscan cutoff values for fibrosis stages and the following cutoffs have been proposed (Wili et al, Clin Gastro Hepatol 2015; 13:27-36): Cutoffs for Stage 3 and Stage 4 fibrosis respectively: Hepatitis B: >9 and >11.7 kPa Hepatitis C: >9.5 and >12.5 kPa HCV-HIV: >11 and >14 kPa Cholestatic liver diseases: >10 and >17.9 kPa MASLD/MASH: >10 and >14 kPa CAP estimates of steatosis: normal <200 dB/m mild 200 to 250 dB/m moderate 250-290 dB/m substantial > 290 dB/m (Note that Fibroscan is not a quantitative measure of liver fat.) These criteria are estimates and may change as additional supporting data becomes available. (This additional interpretive data was last updated 08/06/22.) [email or web address] Namita Schwartz G[employer]NER'S MATE G-ACTION FINISHER PROCEDURE/MA NOR SURGICAL ORDERABLES Care Teams Wood Planer Relationship Specialty [place] [address] [place] [id number] PCP - General Emergency Medicine 05/06/24
--- OUTSIDE RECORDS SUMMARY | 2024-06-11 15:35 | XMS_ITS | Clinical Summary ---
Author Organization [facility] Address [address] [place] [address] Care Team Providers Care Interventional Radiology Rn Name Role Phone Gris Hermosillo MD Primary Care Provider [phone] Source Comments [facility],non-owned Affiliates and Associated Physician Practices is amultiple site organization consisting of ambulatory clinics and hospital sitesin [place], [place], [place] and [place]. This disclosure is being madepursuant to the Care Everywhere program and may not contain all information available regarding this patient. Last updated 17.[facility] Allergies No known active allergies Medications * Be aware that medications may not be up to date on this document. Alwaysverify current medications with the patient. Medication Sig Dispensed Refills Start Date End Date Status potassium chloride ER (Klor-Con M) 20 MEQ tablet Take 1 (one) tablet by mouth 2 times daily As directed. 06/23/2023 Active amLODIPine (Norvasc) 5 MG tablet Take 1 (one) tablet by mouth once daily 06/20/2023 Active chlorthalidone (Hygroton) 25 MG tablet TAKE TWO TABLETS BY MOUTH EVERY MORNING FOR BLOOD PRESSURE AND FLUID RETENTION 06/20/2023 Active vitamin D, ergocalciferol, (Drisdol) 1.25 MG (93608 UT) capsule Take 1 (one) capsule by mouth every 7 days 09/26/2023 Active metFORMIN (Glucophage) 850 MG tablet Take 1 (one) tablet by mouth 2 times daily with morning and evening meal Active alendronate (Fosamax) 70 MG tablet Take 1 (one) tablet by mouth every 7 days before meal Active pantoprazole EC (Protonix) 40 MG tablet Take 1 (one) tablet by mouth 2 times daily Active sucralfate (Carafate) 1 GM/10ML suspension Take 10 mL by mouth 4 times daily Active Active Problems Problem Noted Date Diagnosed Date Weight loss 03/11/2024 Moderate malnutrition 03/08/2024 Abdominal pain 03/07/2024 Acute gastritis 02/17/2024 Class 2 severe obesity due t o excess calories with serious comorbidity and body mass index (BMI) of 35.0 to 35.9 in adult 09/18/2023 Hyperlipidemia associated with type 2 diabetes m ellitus 09/18/2023 Metabolic dysfunction-associated steatohepatitis (MASH) 07/10/2023 Overview (05/06/2024): 07/10/2023 fibroscan LSM, kPa 6.9 CAP 281 05/06/24 Fibroscan CAP 262 LSM kPa 8.7 Hyperbilirubinemia 05/06/2023 07/10/2023 Hypokalemia 05/06/2023 Type 2 diabetes mellitus wit hout complication, without long-term current use of insulin 05/06/2023 Elevated liver function tests 05/05/2023 Essential hypertension 05/05/2023 Hematemesis 05/05/2023 07/10/2023 Screen for colon cancer 12/30/2022 Overview (05/06/2024): Added automatically from request for surgery [id number] Helicobacter pylori infection 12/14/2022 Epigastric pain 09/27/2022 07/10/2023 Encounters Date Type Department Care Team Description 05/07/2024 Telephone [facility] - GI [address] [place] [phone] Bella Lechuga RN Imaging; Future Appointment 05/06/2024 9:00 AM CRYSTAL SLICER Procedure visit [facility] - GI [address] [place] [phone] Unknown, Provider Elevated liver enzymes 05/06/2024 8:30 AM CRYSTAL SLICER Office Visit [facility] - GI [address] [place] [phone] Namita Schwartz APRN-CNP Cyst and pseudocyst of pancreas (HCC) (Primary Dx); Metabolic dysfunction-associated steatohepatitis (MASH) 05/06/2024 Travel from Last 3 Months Family History Medical History Relation Name Comments Aneurysm, Brain Father Alzheimer's Disease Mother Relation Name Status Comments Father Mother Alive Social History Tobacco Use Types Packs/Day Years [...] Comments Blood Pressure 120/85 05/06/2024 8:30 AM CRYSTAL SLICER Pulse 73 05/06/2024 8:30 AM CRYSTAL SLICER Temperature 36.5 C (97.7 F) 05/06/2024 8:30 AM CRYSTAL SLICER Respiratory Rate - - Oxygen Saturation 100% 05/06/2024 8:30 AM CRYSTAL SLICER Inhaled Oxygen Concentration - - Weight 61.5 kg (135 lb 9.6 oz) 05/06/2024 8:30 A M CRYSTAL SLICER Height 149.9 cm (4' 11 ) 05/06/2024 8:30 AM CRYSTAL SLICER Body Mass Index 27.39 05/06/2024 8:30 AM CRYSTAL SLICER Plan of Treatment Upcoming Encounters Date Type Department Care Team (Late st Contact Info) Description 08/23/2024 8:30 AM CDT Appointment [facility] MRI [address] [place] [phone] Namita Schwartz, UZAIR-RICCI [address] [place] [address] [place] [phone] 08/23/2024 10:00 AM CDT [place] [facility] [place] [address] [place] [phone] 08/23/2024 10:30 AM CDT Office Visit [facility] - GI [address] [place] [address] [place] [phone] Namita Schwartz M, SALES SOLUTIONS REPRESENTATIVE-MATERIAL ENGINEER [address] [place] [phone] Health Maintenance Due Date Last Done Comments COLOGUARD (AGES 45-75) - COLON CA SCREENING 1959 COLON MONITORING 1959 COLONOSCOPY - COLON CA SCREENING 1959 CT COLONOGRAPHY - COLON CA SCREENING 1959 Colorectal Cancer Screening 1959 FIT - COLON CA SCREENING 1959 FLEX SIG - COLON CA SCREENING 1959 MAMMOGRAM 1959 PAP SMEAR 1959 HIV SCREENING 10/15/1974 HEPATITIS C SCREENING 10/11/1977 DTAP/TDAP/TD VACCINES (1 - Tdap) 10/15/1978 PNEUMOCOCCAL VACCINE 50+ (1 of 2 - PCV) 10/15/1978 DIABETES-STATIN 1999 ZOSTER VACCINE (1 of 2) 10/15/2009 Respiratory Syncytial Virus (RSV) Vaccine Pt: or over 60 yrs (1 - Risk 60-74 years 1-dose series) 2019 COVID-19 VACCINE ( - 2023- season) 2023 DEPRESSION SCREENING 04/03/2024 DIABETES - URINE PROTEIN SCREENING 04/03/2024 DIABETES RETINOPATHY SCREENING 05/06/2024 DIABETES-FOOT EXAM WITH MONOFILAMENT 05/06/2024 DIABETES-HGB A1C 09/09/2024 03/11/2024, 08/2023, 02/17/2024, Additional history exists DIABETES-SERUM CREATININE 02/17/20252023, 02/18/2024, 02/17/2024, Additional history exists INFLUENZA VACCINE Completed 03/09/2024 HEPATITIS B VACCINE Aged Out No longe r eligible based on patient's age to complete this topic HIB VACCINE Aged Out No longer eligi ble based on patient's age to complete this topic HPV VACCINE Aged Out No longer eligi ble based on patient's age to complete this topic MENINGOCOCCAL (Group B) VACCINE Aged Out No longer eligible based on patient's age to complete this topic MENINGOCOCCAL VACCINE Aged Out No fatimah karlee eligible based on patient's age to complete this topic Goals Goal Patient Goal Type Associated Problems Recent Progress Patient-Stated? Author Medication Management General On track( 025 8:48 AM CRYSTAL SLICER) Bella Gloria, RN Note: Expected end date: Ongoing Interventions: Take all medications as prescribed Let your doctor know right away about any changes in your medications Make sure to request a refill of your medication at least one week prior to your last dose Procedures Procedure Name Priority Date/Time Associated Diagnosis Comments CA LIVER ELASTOGRAPHY Routine 05/06/2024 8:48 AM CRYSTAL SLICER Elevated liver enzymes COMPREHENSIVE METABOLIC PANEL Routine 07/10/2023 11:29 AM CDT Elevated liver enzymes from Last 3 Months or Most Recently Relevant to Health Maintenance Results * CA LIVER ELASTOGRAPHY (05/06/2024 8:48 AM CRYSTAL SLICER) Narrative Cristiano Beach MD - 05/06/2024 8:48 AM CRYSTAL SLICER Cristiano Beach MD 05/06/2024 10:25 AM Diagnosis: Elevated liver enzymes RN verified patient NPO for prior 3 hours. Procedure explained. Date of Exam: 05/06/2024 Liver Stiffness: (LSM, kPa) median: 8.7 IQR/Median% (ideally < 30%): 18% CAP (controlled attenuation parameter): 262 Technical Difficulty: None Ordering Provider: Namita Schwartz APRN-RICCI Phone Fax Fibroscan interpretation: I have personally [...] on the following published data: Carmen J, Tjr m H, Ekstkatyt M, Joselin C, Bonaflakitai M, Cure S, Ampuero J, Nasr P, Tallab L, Canivet CM, Kecharob S, S nchez Y, Dincuzeynep E, Aneta A, Chikis M, Neto J, Swathi A and Johnson-Rojo M. Non-invasive tests accurately stratify patients with NAFLD based on their risk of liver-related events. J Hepatol (2021) 76: 4736-4220. Earle PJ, Bimal M, Marily M, et al. Accuracy of FibroScan controlled attenuation parameter and liver stiffness measurement in assessing steatosis and fibrosis in patients with nonalcoholic fatty liver disease. Gastroenterology 2019;156:3382-5012. Jordi SCHAFFER, Jonathan R, Van Natta ML, et al. Vibration-controlled transient elastography to [...] These include the FAST (Fibroscan-AST) score (Sondra, 202) and the Agile3+ and Agile4 scores (Rahat, 2022; Nedra, 202). Sondra TA, Van Natta ML, Jaimie M, Ramírez A, et al. Validation of the accuracy of the FAST score for detecting patients with at-risk nonalcoholic steatohepatitis (SOLORZANO) in a [place] cohort and comparison to other non-invasive algorithms. PLoS ONE (2021) 17: b2608596. Rahat VILA, Ngoc Mares, Cristy ZM, et al. Enhanced diagnosis of advanced fibrosis and cirrhosis in individuals with NAFLD using FibroScan-based Agile scores. J Hepatol (2022) 78: 247-259. Nedra et al. Vibration-controlled transient elastography scores to predict liver-related events in steatotic liver disease. COTY (2023) 331: 0752-4321 Fibroscan LSM can also be used with laboratory parameters without formulas to assess prognosis. According to the Baveno-VII criteria (Chang, 202), Fibroscan LSM <=15 kPa plus a platelet count of >=711v335/L rules out clinically significant portal hypertension (sensitivity and negative predictive value >90%) in patients with compensated advanced chronic liver disease. Chang R, Mere J, Julianne G, Nicole T, Rhoda Rodriges on behalf of the Baveno VII Faculty. Baveno VII--Renewing consensus in portal hypertension. J Hepatol (2021) 76: 959-974 Assessing the likelihood of advanced fibrosis in patients with intermediate liver stiffness measurement (LSM) by Fibroscan (e.g., 8-15 kPa) can be improved by also calculating the FIB-4 score (Ashley et al. Hepatology Communications 2019;3:9680-5839) or NAFLD Fibrosis score (Ervin et al. Clinical Gastroenterology and Hepatology 2019;17:6757-7491 using routine clinical data. Notes: 1. Fibroscan [...] (This additional interpretive data was last updated 04/05/24.) [email or web address] Provider Unknown PROCEDURE/MINOR SURG ICAL ORDERABLES * (ABNORMAL) COMPREHENSIVE METABOLIC PANEL (07/10/2023 11:29 AM CDT) BUN 11 7 - 26 mg/dL 07/10/2023 12:30 PM [facility] Creatinine 0.83 0.56 - 0.96 mg/dL 07/10/2023 12:30 PM [facility] Sodium 136 136 - 145 mmol/L 07/10/2023 12:30 PM [facility] Potassium 3.3(L) 3.5 - 4.5 mmol/L 07/10/2023 12:30 PM [facility] Chloride 98 98 - 107 mmol/L 07/10/2023 12:30 PM [facility] CO2 29 22 - 29 mmol/L 07/10/2023 12:30 PM [facility] Glucose 117(H) 70 - 115 mg/dL 07/10/2023 12:30 PM [facility] Calcium 10.5(H) 8.4 - 10.2 mg/dL 07/10/2023 12:30 PM [facility] Protein Total 7.9 6.0 - 8.3 g/dL 07/10/2023 12:30 PM [facility] Albumin 4.1 3.4 - 5.0 g/dL 07/10/2023 12:30 PM [facility] Bilirubin Total 0.9 0.2 - 1.2 mg/dL 07/10/2023 12:30 PM [facility] Alkaline Phosphatase 90 40 - 150 U/L 07/10/2023 12:30 PM [facility] ALT 73(H) 5 - 55 U/L 07/10/2023 12:30 PM [facility] AST 62(H) 5 - 34 U/L 07/10/2023 12:30 PM [facility] Anion Gap 9 6 - 16 07/10/2023 12:30 PM [facility] BUN/Creatinine Ratio 13 7 - 23 07/10/2023 12:30 PM [facility] Osmolality Calculated 282 275 - 295 mOsm/kg 07/10/2023 12:30 PM [facility] Albumin/Globulin Ratio 1.1 1.1 - 2.3 07/10/2023 12:30 PM [facility] eGFR by CKD-EPI 79(L) >=90 mL/min/1.7 3 m2 07/10/2023 12:30 PM [facility] Blood BLOOD SPECIMEN / Unknown Lab Venipuncture / Unknown 07/10/2023 11:29 AM CDT 07/10/2023 11:57 AM CDT Namita Schwartz SALES SOLUTIONS REPRESENTATIVE-MATERIAL ENGINEER LAB - CHEMIS TRY ORDERABLES [facility] [address] [place] [address], [facility] [phone] from Last 3 Months or Most Recently Relevant to Health Maintenance Care Teams Interventional Radiology Rn Relationship Specialty Start Date End Date Gris Hermosillo MD [address] [place] [phone] PCP - General Emergency Medicine 05/06/24
--- OUTSIDE RECORDS SUMMARY | 2024-06-11 15:35 | XMS_ITS | Referral Summary ---
Author Organization [facility] Address [address] [place] [address] Care Team Providers Care Director Records Management Name Role Phone Gris Hermosillo MD Primary Care Provider [phone] Source Comments [facility],non-owned Affiliates and Associated Physician Practices is amultiple site organization consisting of ambulatory clinics and hospital sitesin [place], [place], [place] and [place]. This disclosure is being madepursuant to the Care Everywhere program and may not contain all information available regarding this patient. Last updated 17.[facility] Encounters Date Type Department Care Team Description 05/07/2024 Telephone [facility] - [facility] [place] [phone] Bella Lechuga, environmental field technician; Future Appointment 05/06/2024 Travel 05/06/2024 9:00 AM TOBACCO WAREHOUSE AGENT Procedure visit [facility] - GI [address] [place] [phone] Unknown, Provider Elevated liver enzymes 05/06/2024 8:30 AM TOBACCO WAREHOUSE AGENT Office Visit [facility] - [facility] [place] [phone] Namita Schwartz, BOBBIN CLEANER-SITE PLANNER Cyst and pseudocyst of pancreas (HCC) (Primary Dx); Metabolic dysfunction-associated steatohepatitis (MASH) from Last 3 Months Allergies No known active allergies Medications * [...] Active vitamin D, ergocalciferol, (Drisdol) 1.25 MG (97129 UT) capsule Take 1 (one) capsule by [...] (05/06/2024): Added automatically from request for surgery [id number] Helicobacter pylori infection 12/14/2022 Epigastric pain 09/27/2022 [...] Comments Blood Pressure 120/85 05/06/2024 8:30 AM TOBACCO WAREHOUSE AGENT Pulse 73 05/06/2024 8:30 AM TOBACCO WAREHOUSE AGENT Temperature 36.5 C (97.7 F) 05/06/2024 8:30 AM TOBACCO WAREHOUSE AGENT Respiratory Rate - - Oxygen Saturation 100% 05/06/2024 8:30 AM TOBACCO WAREHOUSE AGENT Inhaled Oxygen Concentration - - Weight 61.5 kg (135 lb 9.6 oz) 05/06/2024 8:30 A M TOBACCO WAREHOUSE AGENT Height 149.9 cm (4' 11 ) 05/06/2024 8:30 AM TOBACCO WAREHOUSE AGENT Body Mass Index 27.39 05/06/2024 8:30 AM TOBACCO WAREHOUSE AGENT Plan of Treatment Upcoming Encounters Date Type Department Care Team (Late st Contact Info) Description 08/23/2024 8:30 AM CDT Appointment [facility] [address] [place] [phone] Namita Schwartz, BOBBIN CLEANER-SITE PLANNER [address] [place] [address] [place] [address] 08/23/2024 10:00 AM CDT Procedure visit [facility] GI [address] [place] [phone] 08/23/2024 10:30 AM CDT Office Visit [facility] - GI [address] [place] [phone] Namita Schwartz APRN-CNP [address] [place] [address] Goals Goal Patient Goal Type Associated Problems Recent Progress Patient-Stated? Author Medication Management General On track( 025 8:48 AM TOBACCO WAREHOUSE AGENT) Bella Gloria, RN Note: Expected end date: Ongoing Interventions: Take all medications as prescribed Let your doctor know right away about any changes in your medications Make sure to request a refill of your medication at least one week prior to your last dose Procedures Procedure Name Priority Date/Time Associated Diagnosis Comments [place] LIVER ELASTOGRAPHY Routine 05/06/2024 8:48 AM TOBACCO WAREHOUSE AGENT Elevated liver enzymes COMPREHENSIVE METABOLIC PANEL Routine 07/10/2023 11:29 AM CDT Elevated liver enzymes from Last 3 Months or Most Recently Relevant to Health Maintenance Results * AK LIVER ELASTOGRAPHY (05/06/2024 8:48 AM TOBACCO WAREHOUSE AGENT) Narrative Cristiano Beach MD - 05/06/2024 8:48 AM TOBACCO WAREHOUSE AGENT Cristiano Beach MD 05/06/2024 10:25 AM Diagnosis: [...] on the following published data: Carmen J, Hagstr m H, Ekstkatyt M, Joselin C, Bonaflakitai M, Cure S, Wildero J, Nasr P, Tallab L, Canivet CM, Kechagias S, S nchez Y, Yousuf E, Aneta A, Chikis M, Neto J, Swathi A and Alex-Darrel M. Non-invasive tests accurately stratify patients with NAFLD based on their risk of liver-related events. J Hepatol (2021) 76: 5887-4081. Earle PJ, Bimal M, Marily M, et al. Accuracy of FibroScan controlled attenuation parameter and liver stiffness measurement in assessing steatosis and fibrosis in patients with nonalcoholic fatty liver disease. Gastroenterology 2019;156:3670-5914. Jordi SCHAFFER, Jonathan R, Van Natdeacon ML, [...] These include the FAST (Fibroscan-AST) score (Sondra, 2022) and the Agile3+ and Agile4 scores (Rahat, 2023; Nedra, 2024). Sondra TA, Van Natta ML, Jaimie M, Ramírez A, et al. Validation of the accuracy of the FAST score for detecting patients with at-risk nonalcoholic steatohepatitis (SOLORZANO) in a [place] cohort and comparison to other non-invasive algorithms. PLoS ONE (2021) 17: i3195382. Rahat VILA, Ngoc Mares, Cristy ORTIZ, et al. Enhanced diagnosis of advanced fibrosis and cirrhosis in individuals with NAFLD using FibroScan-based Agile scores. J Hepatol (2022) 78: 247-259. Nedra et al. Vibration-controlled transient elastography scores to predict liver-related events in steatotic liver disease. COTY (2023) 331: 1247-1958 Fibroscan LSM can also be used with laboratory parameters without formulas to assess prognosis. According to the Baveno-VII criteria (Chang, 202), Fibroscan LSM <=15 kPa plus a platelet count of >=529b714/L rules out clinically significant portal hypertension (sensitivity and negative predictive value >90%) in patients with compensated advanced chronic liver disease. Chang R, Mere J, Charlie-Juli G, Nicole T, Rhoda Rodriges on behalf of the Baveno VII Faculty. Baveno VII--Renewing consensus in portal hypertension. J Hepatol (2021) 76: 959-974 Assessing the likelihood of advanced fibrosis in patients with intermediate liver stiffness measurement (LSM) by Fibroscan (e.g., 8-15 kPa) can be improved by also calculating the FIB-4 score (Ashley et al. Hepatology Communications 2019;3:2395-3048) or NAFLD Fibrosis score (Ervin et al. Clinical Gastroenterology and Hepatology 2019;17:2783-7686 using routine clinical data. Notes: 1. Fibroscan [...] additional interpretive data was last updated 04/05/24.) [email or web address] Provider Unknown PROCEDURE/MINOR SURG ICAL ORDERABLES * (ABNORMAL) COMPREHENSIVE METABOLIC PANEL (07/10/2023 11:29 AM CDT) BUN 11 7 - 26 mg/dL 07/10/2023 12:30 PM [facility] Creatinine 0.83 0.56 - 0.96 mg/dL 07/10/2023 12:30 PM [facility] Sodium 136 136 - 145 mmol/L 07/10/2023 12:30 PM [facility] Potassium 3.3(L) 3.5 - 4.5 mmol/L 07/10/2023 12:30 PM [facility] Chloride 98 98 - 107 mmol/L 07/10/2023 12:30 PM [facility] CO2 29 22 - 29 mmol/L 07/10/2023 12:30 PM [facility] Glucose 117(H) 70 - 115 mg/dL 07/10/2023 12:30 PM [facility] Calcium 10.5(H) 8.4 - 10.2 mg/dL 07/10/2023 12:30 PM [facility] Protein Total 7.9 6.0 - 8.3 g/dL 07/10/2023 12:30 PM [facility] Albumin 4.1 3.4 - 5.0 g/dL 07/10/2023 12:30 PM [facility] Bilirubin Total 0.9 0.2 - 1.2 mg/dL 07/10/2023 12:30 PM [facility] Alkaline Phosphatase 90 40 - 150 U/L 07/10/2023 12:30 PM [facility] ALT 73(H) 5 - 55 U/L 07/10/2023 12:30 PM [facility] AST 62(H) 5 - 34 U/L 07/10/2023 12:30 PM [facility] Anion Gap 9 6 - 16 07/10/2023 12:30 PM [facility] BUN/Creatinine Ratio 13 7 - 23 07/10/2023 12:30 PM [facility] Osmolality Calculated 282 275 - 295 mOsm/kg 07/10/2023 12:30 PM [facility] Albumin/Globulin Ratio 1.1 1.1 - 2.3 07/10/2023 12:30 PM [facility] eGFR by CKD-EPI 79(L) >=90 mL/min/1.7 3 m2 07/10/2023 12:30 PM [facility] Blood BLOOD SPECIMEN / Unknown Lab Venipuncture / Unknown 07/10/2023 11:29 AM CDT 07/10/2023 11:57 AM T Namita Schwartz BOBBIN CLEANER-SITE PLANNER LAB - CHEMIS TRY ORDERABLES [facility] [address] [place] [address], [facility] [phone] from Last 3 Months or Most Recently Relevant to Health Maintenance Care Teams Director Records Management Relationship Specialty Start Date End Date Gris Hermosillo MD [address] [place] [phone] PCP - General Emergency Medicine 05/06/24
== END 2024-06-11 13:52 | disposition home or self-care (01) ==
LOC: ANHIMG 13:52
PROVIDERS: PCP Physician Assistant; Visit Provider Surgery
DX: N63.23 Unspecified lump in the left breast, lower outer quadrant (principal); N63.20 Unspecified lump in the left breast, unspecified quadrant
CPT/HCPCS: 76642